=== PATIENT | female | born 1980 | race Caucasian/White ===

== ENCOUNTER 2020-02-17 20:29 | Emergency (ER) | payer BC, SELFPAY ==
[2020-02-17] VITALS (7 sets, daily range): BP systolic 122–156; BP diastolic 81–99; PULSE 81–88; RESP 16; TEMP 37; O2SAT 98–100
--- NOTE | ~2020-02-17 | XR_ITS ---
EXAMINATION: XR chest 2V DATE: 02/17/2020 21:15 INDICATION: Hypertension TECHNIQUE: PA and lateral views of the chest are obtained. COMPARISON: None available FINDINGS: The lungs are free of acute opacities. There is no pleural effusion or pneumothorax. The ca rdiomediastinal silhouette is normal. There is mild thoracic spondylosis. IMPRESSION: 1. No acute cardiopulmonary abnormality. Reviewed, dictated and finalized at location A. LE BOSS
--- NOTE | 2020-02-17 20:41 | ECG_ITS ---
Measurements Intervals Stout Rate: 86 P: 19 MD: 138 QRS: 48 QRSD: 106 T: 30 QT: 378 QTc: 454 Interpretive Statements SINUS RHYTHM BORDERLINE T WAVE ABNORMALITY- ANTERIOR LEADS BORDERLINE ECG Electronically Signed On 02-19-2020 8:23:06 SOIL TESTER by Uli Joshi D.O.
[2020-02-17 21:01] LABS: Appearance Urine Clear (Clear); Bilirubin Urine Negative (Negative); Color Urine Yellow (Yellow); Glucose Urine UA Negative (Negative); Ketones Urine Negative (Negative); Leukocyte Esterase Ur Negative LEU/UL (Negative); Nitrate Urine Negative (Negative); Protein Urine Negative (Negative); Urobilinogen Urine 0.2 mg/dL (0.2-1.0); pH Urine 6.5 (5.0-8.0)
[2020-02-17 21:02] LABS: Basophils Absolute Auto 0.03 K/mm3 (0.00-0.10); Basophils Percent Auto 0.4 % (0.0-1.0); Eosinophils Absolute Auto 0.13 K/mm3 (0.02-0.50); Eosinophils Percent Auto 1.7 % (1.0-6.0); Hematocrit 43.5 % (35.0-49.0); Hemoglobin 14.1 g/dL (12.0-15.0); Immature Granulocyte Absolute 0.01 K/mm3 (0.00-0.00); Immature Granulocyte Percent A 0.1 % (0.0-0.0); Lymphocytes Absolute Auto 2.99 K/mm3 (1.10-4.50); Lymphocytes Percent Auto 39.9 % (18.0-42.0); Mean Corpuscular HGB Conc 32.4 g/dL (32.0-36.0); Mean Corpuscular Hemoglobin 30.9 pg (27.0-31.0); Mean Corpuscular Volume 95.4 fL (78.0-102.0); Mean Platelet Volume 9.5 fl (9.2-11.8); Monocytes Absolute Auto 0.58 K/mm3 (0.10-0.90); Monocytes Percent Auto 7.7 % (2.0-11.0); Neutrophils Absolute Auto 3.8 K/mm3 (1.7-7.2); Neutrophils Percent Auto 50.2 % (50.0-70.0); Platelet Count Result 266 K/mm3 (150-420); Red Blood Count 4.56 M/mm3 (4.20-5.40); Red Cell Distribution Width 12.5 % (11.6-14.4); White Blood Count 7.5 K/mm3 (4.8-10.8)
[2020-02-17 21:05] LABS: Add Urine Microscopic? YES; Blood Urine Trace-Intact (Negative); RBC Urine 0-2 /hpf (0-2); WBC Urine 0-3 /hpf (0-3)
[2020-02-17] MEDS: METOPROLOL SUCCINATE EXT REL 25 MG TABCR PO (21:05)
[2020-02-17 21:06] LABS: Bacteria Urine 1+ /hpf; Squamous Epithelial Cell Urine Few /hpf (Few)
[2020-02-17 21:11] LABS: Amphetamine Screen Urine Negative (Negative); Barbiturate Screen Urine Negative (Negative); Benzodiazepines Screen Urine Negative (Negative); Cannabinoid Screen Urine Negative (Negative); Cocaine Screen Urine Negative (Negative); Methadone Screen Urine Negative (Negative); Opiate Screen Urine Negative (Negative); Phencyclidine Screen Urine Negative (Negative)
[2020-02-17 21:12] LABS: INR 0.9; Partial Thromboplastin Time 22.5 SEC (23.90-30.70); Prothrombin Time 9.6 Seconds (9.50-12.10)
[2020-02-17 21:13] LABS: D Dimer 0.24 mg/L (0.19-0.50)
[2020-02-17 21:17] LABS: Alanine Aminotransferase 37 U/L (14-59); Alkaline Phosphatase 51 U/L (46-116); Anion Gap 9 mmol/L (8-16); Aspartate Amino Transferase 19 U/L (15-37); Bilirubin,Total 0.2 mg/dL (0.00-1.00); Blood Urea Nitrogen 16 mg/dL (7-18); Carbon Dioxide 28 mmol/L (21-32); Chloride 101 mmol/L (98-108); Estimated CRCL calculation 83 ml/min; Estimated Glomerular Filt Rate > 60; Glucose 103 mg/dL (70-99); Osmolality Calculated 287 mOsm/kg (285-295); Potassium 3.6 mmol/L (3.5-5.1); Sodium 138 mmol/L (136-145); Total Protein 7.4 g/dL (6.4-8.2)
[2020-02-17 21:19] LABS: Troponin I 4.1 ng/L (0.00-60.4)
--- NOTE | 2020-02-17 21:33 | ED.GENADULT ---
HPI - General Adult General Chief complaint: Unspecified Stated complaint: 39YO female w/ no prior h.o HTN here concerned over elevated Bp that her home monitor has been recording. Went to PCP on 02/06/20 where she was asked to monitor ambulatory Bp, her Bp have been elevated since she has been taking them. Related Data Home Medications Medication Instructions Recorded Confirmed multivitamin 1 tablet PO DAILY 02/23/19 02/17/20 norethindrone (contraceptive) 0.35 mg PO DAILY 02/17/20 02/17/20 Allergies Allergy/AdvReac Type Severity Reaction Status Date / Time No Known Allergies Allergy Verified 03/24/19 12:26 Review of Systems Review of Systems: All systems reviewed & are unremarkable except as noted in HPI and below Constitutional: Constitutional: Reports no additional constitutional complaints Eyes: Eyes: Reports no additional eye complaints ENT: Reports system reviewed and no additional complaints, except as documented Cardiovascular: Cardiovascular: Reports no additional cardiovascular complaints Respiratory: Respiratory: Reports no additional respiratory complaints Gastrointestinal: Gastrointestinal: Reports no additional gastrointestinal complaints Genitourinary: Genitourinary: Reports no additional female genitourinary complaints Musculoskeletal: Musculoskeletal: Reports no additional musculoskeletal complaints Integumentary/Breasts: Skin/Breast: Reports system reviewed and no additional complaints, except as docu Neurologic: Reports headache(s) Psychiatric: Psychiatric: Reports no additional psychiatric complaints PMFSH Surgical History Surgical History H/O section Family History Family History Grandparent Kidney disease Lung cancer Social History Social History Social History: , has 2 children Smoking packs per day: 0.5 Smoking cigarettes per day: 10.0 Years smoked: 4 Smoking pack-years: 2.00 Smoking status: Former smoker Alcohol intake: current Substance use: never Substance use type: does not use Gender identity (if verbalized by the patient): Female Spiritual care concerns: No Agree to blood products: Yes Exam Const: General: cooperative, healthy appearing, no acute distress, well developed, alert, awake and Physically active Nutritional Appearance: average body habitus and well nourished Orientation/consciousness: oriented to person, oriented to place, oriented to time and patient oriented x3 Limitations: no limitations HENMT: Head: normal to inspection Ears: hearing grossly normal bilaterally Eyes: General: appearance normal, both eyes and all related structures Neck: Neck: normal visual inspection Chest: Chest palpation & inspection: normal inspection of the chest Resp: Effort & Inspection: normal respiratory effort Cardio: Jugular venous distension: no JVD Palpation: normal PMI Rate: regular rate Rhythm: regular rhythm Heart sounds: S1 normal heart sound present and S2 normal heart sound present GI: Inspection: normal to inspection Auscultation: normal bowel sounds Back/Spine/Pelvis: Back: no CVA tenderness Thoracic/Lumbar Spine: thoracic and lumbar spine normal to inspection Skin: General skin exam: normal color and no rashes or lesions noted Lesions: no lesions Rashes: no rashes Trauma: no lacerations or abrasions Hair: normal Nails: normal Neuro: General: oriented to person, oriented to place, oriented to time, patient oriented x3, gait normal, tone normal, moves all extremities, Normal light touch and pain sensation, no meningeal signs, no focal motor deficits and CN's II-XI intact bilaterally Cranial nerves: Yes CN's II-XII intact bilaterally and Yes Nystagmus not present Cognition (Neuro): normal cognition Speech: normal speech Gait exam (
== END 2020-02-17 21:59 | disposition home or self-care (01) ==
PROVIDERS: Emergency Provider Family Medicine; PCP Nurse Practitioner Family
DX: I10 Essential (primary) hypertension (principal); Z87.891 Personal history of nicotine dependence
CPT/HCPCS: 36415; 71046; 80053; 80307; 81001; 84484; 85025; 85380; 85610; 85730; 93005; 99283; 99284; A9270

== ENCOUNTER 2020-02-23 10:56 | Outpatient (CLI) | payer BC, SELFPAY ==
--- NOTE | ~2020-02-23 | MM_ITS ---
EXAMINATION: MM screening [facility] BI w juan HISTORY: Screening mammogram TECHNIQUE: Craniocaudal and mediolateral oblique 3-D tomosynthesis images were obtained and synthetic 2-D images were generated. CAD analysis was submitted and interpreted. COMPARISON: None, baseline BREAST PARENCHYMAL COMPOSITION: The breasts are almost entirely fatty. FINDINGS: There is no evidence of suspicious mass, calcification, or architectural distortion to sugg est malignancy in either breast. IMPRESSION: 1. No mammographic evidence of malignancy. 2. Recommend routine screening mammography in one year. BI-RADS Category 1: Negative Reviewed, dictated and finalized at location A. ABLE TRACK LINE MARKER
== END 2020-02-23 10:57 | disposition home or self-care (01) ==
LOC: CHSIMG 10:57
PROVIDERS: PCP Nurse Practitioner Family; Visit Provider Nurse Practitioner Family
DX: Z12.31 Encounter for screening mammogram for malignant neoplasm of breast (principal)
CPT/HCPCS: 77063; 77067

== ENCOUNTER 2021-02-26 08:31 | Outpatient (CLI) | payer BC, SELFPAY ==
--- NOTE | ~2021-02-26 | MM_ITS ---
EXAMINATION: MM screening [facility] BI w juan HISTORY: Screening TECHNIQUE: Craniocaudal and mediolateral oblique 3-D tomosynthesis images were obtained and synthetic 2-D images were generated. CAD analysis was submitted and interpreted. COMPARISON: 02/23/2020 BREAST PARENCHYMAL COMPOSITION: There are scattered areas of fibroglandular density. FINDINGS: There is no evidence of suspicious mass, calcification, or architectural distortion to sugg est malignancy in either breast. There has been no suspicious interval change. IMPRESSION: 1. No mammographic evidence of malignancy. 2. Recommend routine screening mammography in one year. BI-RADS Category 1: Negative Reviewed, dictated and finalized at location A. ATING SYSTEM PROGRAMMER
== END 2021-02-26 08:32 | disposition home or self-care (01) ==
LOC: CHSIMG 08:32
PROVIDERS: PCP Nurse Practitioner Family; Visit Provider Nurse Practitioner Women's Health
DX: Z12.31 Encounter for screening mammogram for malignant neoplasm of breast (principal)
CPT/HCPCS: 77063; 77067

== ENCOUNTER 2022-02-27 11:44 | Outpatient (CLI) | payer BC, SELFPAY ==
--- NOTE | ~2022-02-27 | MM_ITS ---
EXAMINATION: MM screening [facility] BI w juan HISTORY: Screening TECHNIQUE: Craniocaudal and mediolateral oblique 3-D tomosynthesis images were obtained and synthetic 2-D images were generated. CAD analysis was submitted and interpreted. COMPARISON: Comparison to multiple prior studies sequentially, with oldest reviewed study dated 08/2020. BREAST PARENCHYMAL COMPOSITION: There are scattered areas of fibroglandular density. FINDINGS: There is no evidence of suspicious mass, calcification, or architectural distortion to sugg est malignancy in either breast. There has been no suspicious interval change. IMPRESSION: 1. No mammographic evidence of malignancy. 2. Recommend routine screening mammography in one year. BI-RADS Category 1: Negative Reviewed, dictated and finalized at location A. D TECHNICIAN
== END 2022-02-27 11:45 | disposition home or self-care (01) ==
LOC: CHSIMG 11:46
PROVIDERS: PCP Nurse Practitioner Family; Visit Provider Nurse Practitioner Women's Health
DX: Z12.31 Encounter for screening mammogram for malignant neoplasm of breast (principal)
CPT/HCPCS: 77063; 77067

== ENCOUNTER 2022-03-24 13:20 | Outpatient (CLI) | payer BC, SELFPAY ==
[2022-03-24 14:15] LABS: Alanine Aminotransferase 16 U/L (14-59); Albumin Level 4.1 g/dL (3.4-5.0); Alkaline Phosphatase 60 U/L (46-116); Anion Gap 9 mmol/L (8-16); Aspartate Amino Transferase 12 U/L (15-37); Bilirubin,Total 0.4 mg/dL (0.00-1.00); Blood Urea Nitrogen 16 mg/dL (7-18); Calcium 9.1 mg/dL (8.5-10.1); Carbon Dioxide 29 mmol/L (21-32); Chloride 103 mmol/L (98-108); Cholesterol 203 mg/dL (0-200); Estimated Glomerular Filt Rate > 60; Free T4 Free Thyroxine 0.85 ng/dL (0.76-1.46); Glucose 93 mg/dL (70-99); HDL Direct 66 mg/dL (40-60); LDL Cholesterol Calculated 124 mg/dL (<130); Osmolality Calculated 293 mOsm/kg (285-295); Potassium 3.2 mmol/L (3.5-5.1); Sodium 141 mmol/L (136-145); Thyroid Stimulating Hormone 1.15 uIU/mL (0.36-3.74); Total Protein 6.9 g/dL (6.4-8.2); Triglycerides 67 mg/dL (0-150)
[2022-03-27 17:23] LABS: Vitamin D 25 Hydroxy 34 ng/mL (30-100)
== END 2022-03-24 13:21 | disposition home or self-care (01) ==
LOC: CHSLAB 13:22
PROVIDERS: PCP Nurse Practitioner Family; Visit Provider Nurse Practitioner Family
DX: R53.83 Other fatigue (principal); Z79.899 Other long term (current) drug therapy; Z13.6 Encounter for screening for cardiovascular disorders; I10 Essential (primary) hypertension
CPT/HCPCS: 36415; 80053; 80061; 82306; 84439; 84443

== ENCOUNTER 2023-03-13 12:44 | Outpatient (CLI) | payer BC, SELFPAY ==
--- NOTE | ~2023-03-13 | MM_ITS ---
EXAMINATION: MM screening [facility] BI w juan HISTORY: Screening mammogram TECHNIQUE: Craniocaudal and mediolateral oblique 3-D tomosynthesis images were obtained and synthetic 2-D images were generated. CAD analysis was submitted and interpreted. COMPARISON: 02/27/2022, 02/26/2021, 02/23/2020 BREAST PARENCHYMAL COMPOSITION: There are scattered areas of fibroglandular density. FINDINGS: No suspicious mass, calcification, or architectural distortion are identified in either jaya ast to suggest malignancy. There has been no suspicious interval change. IMPRESSION: 1. No mammographic evidence of malignancy. 2. Recommend routine screening mammography in one year. BI-RADS Category 1: Negative Reviewed, dictated and finalized at location A. ER TYPE BAR AND SEGMENT
== END 2023-03-13 12:45 | disposition home or self-care (01) ==
LOC: CHSIMG 12:45
PROVIDERS: PCP Nurse Practitioner Family; Visit Provider Nurse Practitioner Women's Health
DX: Z12.31 Encounter for screening mammogram for malignant neoplasm of breast (principal)
CPT/HCPCS: 77063; 77067

== ENCOUNTER 2024-03-15 13:45 | Outpatient (CLI) | payer BC, SELFPAY ==
--- NOTE | ~2024-03-15 | MM_ITS ---
EXAMINATION: MM screening debbi BI w juan HISTORY: Screening TECHNIQUE: Craniocaudal and mediolateral oblique 3-D tomosynthesis images were obtained and synthetic 2-D images were generated. CAD analysis was submitted and interpreted. COMPARISON: Comparison to multiple prior studies sequentially, with oldest reviewed study dated 08/2020. BREAST PARENCHYMAL COMPOSITION: Not dense: There are scattered areas of fibroglandular density. FINDINGS: There is no evidence of suspicious mass, calcification, or architectural distortion to sugg est malignancy in either breast. There has been no suspicious interval change. IMPRESSION: 1. No mammographic evidence of malignancy. 2. Recommend routine screening mammography in one year. BI-RADS Category 1: Negative Reviewed, dictated and finalized at location A. INE GUNNER
--- OUTSIDE RECORDS SUMMARY | 2024-03-15 14:25 | XMS_ITS ---
Author Organization [facility] Address [address] [place] [address] Phone Care Team Providers Care Project Management Advisor Name Role Phone SOFY MALONE, SELAM C Unavailable [phone] LESLIE SMITH MD Primary Care Provider [phone] Problems Includes: Active, inactive, and resolved Problems All Visits Onset Date Resolved Date Provider Condition S tatus History of Essential Hypertension 12/13/2013 Unknown JOSE BLAIR MD Resolved Last Documented On 08/10/2014 9:21AM ; [facility] Note: was Closed. Delivery 07/26/2013 02/06/2020 ELIZABETH Gerson JEREMY CARMONA WHNP-BC Resolved Last Documented On 02/06/2020 8:40AM ; [facility] Note: LTCS Drug Use 07/06/2012 Unknown JOSE BLAIR MD Resolved Last Documented On 02/28/2013 3:37PM ; [facility] Note: was Closed. Tobacco Use 07/06/2012 Unknown JOSE BLAIR MD Resolve d Last Documented On 02/28/2013 3:37PM ; [facility] Note: was Closed. Plan of Treatment Findings Encounter Date Ordered Clinical summary pro vided to patient WELL WOMAN - ESTABLISHED PT with ELIZABETHBRIAN CARDONA WHNP-BC 03/16/2023 Last Documented On 9:34AM ; [facility] Ordered follow-up visit 1 ye ar or as needed WELL WOMAN - ESTABLISHED PT with ELIZABETH CARDONA WHNP-BC 03/16/2023 Last Documented On 4 9:34AM ; [facility] Ordered Clinical summary pro vided to patient WELL WOMAN - ESTABLISHED PT with ELIZABETH CARDONA WHNP-BC 03/13/2022 Last Documented On 3 9:41AM ; [facility] Ordered follow-up visit 1 ye ar or as needed WELL WOMAN - ESTABLISHED PT with ELIZABETHBRIAN CARDONA WHNP-BC 03/13/2022 Last Documented On 3 9:41AM ; [facility] Ordered Clinical summary pro vided to patient WELL WOMAN - ESTABLISHED PT with ELIZABETHBRIAN CARDONA WHNP-BC 03/07/2021 Last Documented On 2 9:05AM ; [facility] Ordered follow-up visit 1 ye ar or as needed WELL WOMAN - ESTABLISHED PT with ELIZABETHBRIAN CARDONA WHNP-BC 03/07/2021 Last Documented On 2 9:05AM ; [facility] Ordered Clinical summary pro vided to patient BIOINFORMATICS DEVELOPER EXAM with ELIZABETH CARDONA WHNP-BC 02/06/2020 Last Documented On 0 8:53AM ; [facility] Ordered follow-up visit 1 ye ar or as needed BIOINFORMATICS DEVELOPER EXAM with ELIZABETHBRIAN CARDONA WHNP-BC 02/06/2020 Last Documented On 0 8:53AM ; [facility] Ordered Clinical summary pro vided to patient PROBLEM VISIT with ELIZABETH CARDONA WHNP-BC 02/24/2019 Last Documented On 0 9:02AM ; [facility] Ordered Clinical summary pro vided to patient BIOINFORMATICS DEVELOPER EXAM with ELIZABETHBRIAN CARDONA WHNP-BC 02/02/2019 Last Documented On 9 9:02AM ; [facility] Ordered Clinical summary pro vided to patient BIOINFORMATICS DEVELOPER EXAM with ELIZABETHBRIAN CARDONA WHNP-BC 12/25/2017 Last Documented On 8 9:17AM ; [facility] Ordered Clinical summary pro vided to patient BIOINFORMATICS DEVELOPER EXAM with ELIZABETHBRIAN CARDONA WHNP-BC 12/17/2016 Last Documented On 7 9:27AM ; [facility] Ordered Clinical summary pro vided to patient BIOINFORMATICS DEVELOPER EXAM with ELIZABETHBRIAN CARDONA WHNP-BC 12/17/2015 Last Documented On 6 11:20AM ; [facility] Ordered Clinical summary pro vided to patient BIOINFORMATICS DEVELOPER EXAM with ELIZABETH CARDONA NP-BC 12/15/2014 Last Documented On 5 9:55AM ; [facility] Ordered Clinical summary pro vided to patient RETURN OB EXAM with ELIZABETH CARDONA WHNP-BC 06/01/2014 Last Documented On 5 1:29PM ; [facility] Ordered Clinical summary pro vided to patient RETURN OB EXAM with ELIZABETH CARDONA WHNP-BC 04/20/2014 Last Documented On 5 10:20AM ; [facility] Ordered Clinical summary pro vided to patient RETURN OB EXAM with ELIZABETH CARDONA NP-BC 03/09/2014 Last Documented On 5 9:42AM ; [facility] Ordered Clinical summary pro vided to patient RETURN OB EXAM with ELIZABETH CARDONA NP-BC 01/09/2014 Last Documented On 4 1:54PM ; [facility] Ordered Clinical summary pro vided to patient RETURN OB EXAM with ELIZABETH CARDONA NP-BC 12/23/2012 Last Documented On 3 9:51AM ; [facility] Ordered Clinical summary pro vided to patient RETURN OB EXAM with ELIZABETH CARDONA NP-BC 11/26/2012 Last Documented On 3 1:37PM ; [facility] Ordered Clinical summary pro vided to patient RETURN OB EXAM with ELIZABETH CARDONA NP-BC 10/28/2012 Last Documented On 3 8:59AM ; [facility] Ordered Clinical summary pro vided to patient NEW OB EXAM with ELIZABETH CARDONA NP-BC 07/06/2012 Last Documented On 3 11:32AM ; [facility] D/W pt. need to wait 3 full cycles before attempting another .Jessie spent 20 minutes discussing blighted ovum vs. miscarriage and need for f/u u/sound if quant. hcg is not decreasing. She states full understanding of above and is agreeable to this plan. Declines counseling today - doing well emotionally RECHECK with ELIZABETH CARDONA WHNP-BC 12/11/2011 Last Documented On 2 8:32AM ; [facility] Ordered Clinical summary pro vided to patient MISSED MENSES with ELIZABETH CARDONA [facility]- 11/19/2011 Last Documented On 2 11:45AM ; [facility] Marya is still trying to co nceive. See labs and u/s from last year. I strongly encouraged her , Smooth ( [birth year]) to have semen analysis and she states he is agreeable, so order and instructions given. She is cycling q month x 3-4 days. She would like to see Dr. Blair for fertility consult. PCOS pamphlet given and briefly discussed. Taking pnv otc BIOINFORMATICS DEVELOPER EXAM with ELIZABETH CARDONA [facility] 08/14/2011 Last Documented On 2 10:56AM ; [facility] Ordered follow-up visit 1 ye ar or as needed BIOINFORMATICS DEVELOPER EXAM with ELIZABETH CARDONA [facility]- 08/09/2010 Last Documented On 1 11:22AM ; [facility] Ordered follow-up visit 1 ye ar or as needed BIOINFORMATICS DEVELOPER EXAM with ELIZABETH CARDONA [facility] 08/01/2009 Last Documented On 0 2:53PM ; [facility] Instructions to patient Instructions for patient : B reast Self Exam discussed Last Documented On 4 9:27AM ; [facility] Lose weight Last Documented On 4 9:28AM ; [facility] Instructions for patient : B reast Self Exam discussed Last Documented On 3 9:28AM ; [facility] Lose weight Last Documented On 3 9:30AM ; [facility] Instructions for patient : B reast Self Exam discussed Last Documented On 2 8:56AM ; [facility] Lose weight Last Documented On 2 8:56AM ; [facility] Instructions for patient : B reast Self Exam discussed Last Documented On 0 8:36AM ; [facility] Lose weight Last Documented On 0 8:36AM ; [facility] Instructions for patient : K eep the area around the vulva dry. Allow the area to have exposure to air. Avoid irritants such as fabric softeners and perfumed soaps.~ Last Documented On 0 8:47AM ; [facility] Advised d/c scented bath pro ducts Last Documented On 0 8:47AM ; [facility] Instructions for patient : B reast Self Exam discussed Last Documented On 9 8:44AM ; [facility] Lose weight Last Documented On 9 8:45AM ; [facility] Instructions for patient : B reast Self Exam discussed Last Documented On 8 8:59AM ; [facility] Lose weight Last Documented On 8 8:59AM ; [facility] Instructions for patient : B reast Self Exam discussed Last Documented On 7 9:12AM ; [facility] Lose weight Last Documented On 7 9:13AM ; [facility] Instructions for patient : B reast Self Exam discussed Last Documented On 6 11:05AM ; [facility] Lose weight Last Documented On 6 11:06AM ; [facility] Safe sex counseling Last Documented On 6 11:06AM ; [facility] Instructions for patient : B reast Self Exam discussed Last Documented On 5 9:29AM ; [facility] Lose weight Last Documented On 5 9:30AM ; [facility] Instructions for patient : K eep the area around the vulva dry. Allow the area to have exposure to air. Avoid irritants such as fabric softeners and perfumed soaps.~ Last Documented On 4 2:25PM ; [facility] Instructions for patient : B reast Self Exam discussed Last Documented On 4 10:41AM ; [facility] Instructions for patient : t he patient was instructed in the use and possible side effects of the medication prescribed. She is to maintain good hydration via p.o. fluids. We also discussed possible triggers for UTI and preventive measures Last Documented On 3 3:51PM ; [facility] Patient to call if fever or back pain Last Documented On 3 3:51PM ; [facility] Instructed to decrease carbo [place] and caffeine Last Documented On 3 3:51PM ; [facility] Increase water po Last Documented On 3 3:51PM ; [facility] Instructions For Patient: go od handwashing and perineal care Last Documented On 3 3:51PM ; [facility] Return to the clinic if cond ition worsens or new symptoms arise Last Documented On 3 8:53AM ; [facility] ER/ Pain Precautions Last Documented On 3 8:53AM ; [facility] Instructions for patient : B reast Self Exam discussed Last Documented On 2 10:11AM ; [facility] Instructions for patient : B reast Self Exam discussed Last Documented On 1 10:59AM ; [facility] Instructions for patient : B reast Self Exam discussed Last Documented On 0 2:25PM ; [facility] Education and Decision Aids were provided during visit for: Patient Education: Daily ange cium and vitamin D Last Documented On 4 9:27AM ; [facility] Patient Education: weight be aring exercise Last Documented On 4 9:27AM ; [facility] Patient Education: Daily ange cium and vitamin D Last Documented On 3 9:28AM ; [facility] Patient Education: weight be aring exercise Last Documented On 3 9:28AM ; [facility] Patient Education: Daily ange cium and vitamin D Last Documented On 2 8:56AM ; [facility] Patient Education: weight be aring exercise Last Documented On 2 8:56AM ; [facility] Patient Education: Daily ange cium and vitamin D Last Documented On 0 8:36AM ; [facility] Patient Education: weight be aring exercise Last Documented On 0 8:36AM ; [facility] Candidiasis Vulvovaginitis I nformation Sheet Given Last Documented On 0 9:00AM ; [facility] Patient Education: Daily ange cium and vitamin D Last Documented On 9 8:44AM ; [facility] Patient Education: weight be aring exercise Last Documented On 9 8:44AM ; [facility] Patient Education: Daily ange cium and vitamin D Last Documented On 8 8:59AM ; [facility] Patient Education: weight be aring exercise Last Documented On 8 8:59AM ; [facility] Patient Education: Daily ange cium and vitamin D Last Documented On 7 9:12AM ; [facility] Patient Education: weight be aring exercise Last Documented On 7 9:12AM ; [facility] Patient Education: Daily ange cium and vitamin D Last Documented On 6 11:05AM ; [facility] Patient Education: weight be aring exercise Last Documented On 6 11:05AM ; [facility] Patient Education: Daily ange cium and vitamin D Last Documented On 5 9:29AM ; [facility] Patient Education: weight be aring exercise Last Documented On 5 9:29AM ; [facility] control consent review ed and signed Last Documented On 5 9:30AM ; [facility] control consent review ed and signed Last Documented On 5 2:02PM ; [facility] Patient education :APPLY RX EXTERNALLY, AND PARTIALLY INSERT APPLICATOR INTO VAGINA W/RX AT HS. PT TO CALL IF NO RELIEF OF SX OR ANY CHANGE IN STATUS. ALL QUESTIONS ANSWERED Last Documented On 4 2:25PM ; [facility] Candidiasis Vulvovaginitis I nformation Sheet Given Last Documented On 4 2:25PM ; [facility] STD screening offered and de clined Last Documented On 4 10:41AM ; [facility] Smoking cessation advised Qu it smoking!! Last Documented On 2 11:22AM ; [facility] New OB form given to patient SAB precautions reviewed and pnv samples given. Advised H1N1 and seasonal flu vaccine Last Documented On 2 10:53AM ; [facility] Patient Education: Daily ange cium and vitamin D Last Documented On 2 10:11AM ; [facility] Patient Education: weight be aring exercise Last Documented On 2 10:11AM ; [facility] New OB form given to patient Last Documented On 2 10:44AM ; [facility] Patient Education: Daily ange cium and vitamin D Last Documented On 1 11:00AM ; [facility] Patient Education: weight be aring exercise Last Documented On 1 11:00AM ; [facility] Smoking cessation advised Last Documented On 1 11:00AM ; [facility] New OB form given to patient Last Documented On 1 11:12AM ; [facility] Smoking cessation advised Last Documented On 0 2:53PM ; [facility] Assessments Includes: Assessments for all patient encounters Findings Encounter Date NORMAL FEMALE EXAM WELL WOMAN - ESTABLISHED PT w stephan CARDONA NP-BC 03/16/2023 Last Documented On 4 9:34AM ; [facility] Screening Malig. Neoplasm Rectum WELL WO MAN - ESTABLISHED PT with ELIZABETH CARDONA NP-BC 03/16/2023 Last Documented On 4 9:34AM ; [facility] NORMAL FEMALE EXAM WELL WOMAN - ESTABLISHED PT w stephan CARDONA WHNP-BC 03/13/2022 Last Documented On 3 9:41AM ; [facility] Screening Malig. Neoplasm Rectum WELL WO MAN - ESTABLISHED PT with ELIZABETH CARDONA NP-BC 03/13/2022 Last Documented On 3 9:41AM ; [facility] NORMAL FEMALE EXAM WELL WOMAN - ESTABLISHED PT w stephan CARDONA WHNP-BC 03/07/2021 Last Documented On 2 9:05AM ; [facility] Screening Malig. Neoplasm Rectum WELL WO MAN - ESTABLISHED PT with ELIZABETH CARDONA WHNP-BC 03/07/2021 Last Documented On 2 9:05AM ; [facility] NORMAL FEMALE EXAM BIOINFORMATICS DEVELOPER EXAM with ELIZABETH Dominguez P-BC 02/06/2020 Last Documented On 0 8:53AM ; [facility] Screening Malig. Neoplasm Rectum BIOINFORMATICS DEVELOPER EXAM with Sumeet CARDONA NP-BC 02/06/2020 Last Documented On 0 8:53AM ; [facility] Lucía albicans vulvovaginitis PROBLEM VISIT wi th ELIZABETH CARDONA [facility] 02/24/2019 Last Documented On 0 9:02AM ; [facility] NORMAL FEMALE EXAM BIOINFORMATICS DEVELOPER EXAM with ELIZABETH CARDONA W HNP-BC 02/02/2019 Last Documented On 9 9:02AM ; [facility] NORMAL FEMALE EXAM BIOINFORMATICS DEVELOPER EXAM with ELIZABETH CARDONA W HNP-BC 12/25/2017 Last Documented On 8 9:17AM ; [facility] NORMAL FEMALE EXAM BIOINFORMATICS DEVELOPER EXAM with ELIZABETH CARDONA W HNP-BC 12/17/2016 Last Documented On 7 9:27AM ; [facility] NORMAL FEMALE EXAM BIOINFORMATICS DEVELOPER EXAM with ELIZABETH CARDONA W HNP-BC 12/17/2015 Last Documented On 6 11:20AM ; [facility] Contraceptive management CONSULTATION with JOSE BLAIR MD 11/12/2015 Last Documented On 6 4:18PM ; [facility] NORMAL FEMALE EXAM BIOINFORMATICS DEVELOPER EXAM with ELIZABETH Dominguez P-BC 12/15/2014 Last Documented On 5 9:55AM ; [facility] Normal routine history and p hysical - POST VISIT with ELIZABETH CARDONA [facility] 08/09/2014 Last Documented On 5 2:18PM ; [facility] Infection of abdominal incision PROBLEM VISIT wi th JOSE BLAIR MD 07/03/2014 Last Documented On 5 2:55PM ; [facility] Normal checkup (6 - 42 wk) RETURN OB EX AM with JOSE BLAIR MD 06/22/2014 Last Documented On 5 4:35PM ; [facility] Normal checkup (6 - 42 wk) RETURN OB EX AM with JOSE BLAIR MD 06/15/2014 Last Documented On 5 11:49AM ; [facility] Normal checkup (6 - 42 wk) [Pat ient Encounter] with JOSE BLAIR MD 06/05/2014 Last Documented On 5 4:16PM ; [facility] Normal checkup (6 - 42 wk) RETU RN OB EXAM with ELIZABETH WALLACE 06/01/2014 Last Documented On 5 1:29PM ; [facility] Normal checkup (6 - 42 wk) RETURN OB EX AM with JOSE BLAIR MD 05/18/2014 Last Documented On 5 1:01PM ; [facility] Normal checkup (6 - 42 wk) [Pat ient Encounter] with JOSE BLAIR MD 05/05/2014 Last Documented On 5 3:05PM ; [facility] Normal checkup (6 - 42 wk) RETURN OB EX AM with JOSE BLAIR MD 05/04/2014 Last Documented On 5 10:51AM ; [facility] Normal checkup (6 - 42 wk) RETU RN OB EXAM with ELIZABETH WALLACE 04/20/2014 Last Documented On 5 10:20AM ; [facility] Normal checkup (6 - 42 wk) [Pat ient Encounter] with JOSE BLAIR MD 04/10/2014 Last Documented On 5 3:47PM ; [facility] Normal checkup (6 - 42 wk) RETURN OB EX AM with JOSE BLAIR MD 04/06/2014 Last Documented On 5 9:22AM ; [facility] Normal checkup (6 - 42 wk) * PHONE CALL with JOSE BLAIR MD 03/24/2014 Last Documented On 5 2:45PM ; [facility] Normal checkup (6 - 42 wk) RETU RN OB EXAM with ELIZABETH WALLACE 03/09/2014 Last Documented On 5 9:42AM ; [facility] Normal checkup (6 - 42 wk) RETURN OB EX AM with JOSE BLAIR MD 02/06/2014 Last Documented On 4 2:05PM ; [facility] Normal checkup (6 - 42 wk) RETU RN OB EXAM with ELIZABETH WALLACE 01/09/2014 Last Documented On 4 1:54PM ; [facility] Normal checkup (6 - 42 wk) * PH ONE CALL [facility] 12/19/2013 Last Documented On 4 2:27PM ; [facility] Normal checkup (6 - 42 wk) NEW OB EXAM with JOSE BLAIR MD 12/13/2013 Last Documented On 4 3:36PM ; [facility] Lucía albicans vulvovaginitis PROBLEM VISIT with ANANDA STRICKLAND RN [facility] 11/10/2013 Last Documented On 4 2:28PM ; [facility] Routine pelvic exam BIOINFORMATICS DEVELOPER EXAM with JOSE BLAIR MD 07/26/2013 Last Documented On 4 10:51AM ; [facility] Normal checkup (6 - 42 wk) RETURN OB EX AM with JOSE BLAIR MD 01/17/2013 Last Documented On 3 3:15PM ; [facility] Normal checkup (6 - 42 wk) [Pat ient Encounter] with JOSE BLAIR MD 01/10/2013 Last Documented On 3 10:27AM ; [facility] Normal checkup (6 - 42 wk) RETURN OB EX AM with JOSE BLAIR MD 01/10/2013 Last Documented On 3 3:58PM ; [facility] Normal checkup (6 - 42 wk) * PHONE CALL with JOSE BLAIR MD 01/07/2013 Last Documented On 3 1:02PM ; [facility] Normal checkup (6 - 42 wk) RETURN OB EX AM with JOSE BLAIR MD 01/06/2013 Last Documented On 3 11:56AM ; [facility] Normal checkup (6 - 42 wk) * PH ONE CALL [facility] 12/31/2012 Last Documented On 3 3:52PM ; [facility] Normal checkup (6 - 42 wk) [Pat ient Encounter] with [facility] 12/27/2012 Last Documented On 3 7:56AM ; [facility] Normal checkup (6 - 42 wk) BLOO D PRESSURE CHECK-UP with [facility] 12/24/2012 Last Documented On 3 10:42AM ; [facility] Normal checkup (6 - 42 wk) RETU RN OB EXAM with ELIZABETH [facility]ARDONA [facility] 12/23/2012 Last Documented On 3 9:51AM ; [facility] Normal checkup (6 - 42 wk) [Pat ient Encounter] with ELIZABETH CARDONA [facility] 12/15/2012 Last Documented On 3 4:07PM ; [facility] Normal checkup (6 - 42 wk) RETURN OB EX AM with JOSE BLAIR MD 2012 Last Documented On 3 10:09AM ; [facility] Normal checkup (6 - 42 wk) * PH ONE CALL with ELIZABETH CARDONA [facility] 12/06/2012 Last Documented On 3 10:03AM ; [facility] Normal checkup (6 - 42 wk) RETU RN OB EXAM with ELIZABETH Nieto CARDONA [facility]- 11/26/2012 Last Documented On 3 1:37PM ; [facility] Normal checkup (6 - 42 wk) RETURN OB EX AM with JOSE BLAIR MD 11/11/2012 Last Documented On 3 3:27PM ; [facility] Normal checkup (6 - 42 wk) RETU RN OB EXAM with ELIZABETH CARDONA [facility]- 10/28/2012 Last Documented On 3 8:59AM ; [facility] Normal checkup (6 - 42 wk) * PHONE CALL with JOSE BLAIR MD 10/08/2012 Last Documented On 3 1:30PM ; [facility] Normal checkup (6 - 42 wk) RETURN OB EX AM with JOSE BLAIR MD 09/28/2012 Last Documented On 3 2:03PM ; [facility] Normal checkup (6 - 42 wk) RETU RN OB EXAM with ELIZABETH Nieto [facility]- 08/31/2012 Last Documented On 3 10:08AM ; [facility] Normal checkup (6 - 42 wk) RETURN OB EX AM with JOSE BLAIR MD 08/03/2012 Last Documented On 3 1:51PM ; [facility] Normal checkup (6 - 42 wk) NEW OB EXAM with ELIZABETH CARDONA [facility] 07/06/2012 Last Documented On 3 11:32AM ; [facility] Amenorrhea 10 2/7 weeks by Kate CHAUDHARY with [facility] 4-30-13 MISSED MENSES with ELIZABETH CARDONA NP-BC 11/19/2011 Last Documented On 2 11:45AM ; [facility] NORMAL FEMALE EXAM BIOINFORMATICS DEVELOPER EXAM with ELIZABETH Dominguez [facility] 08/14/2011 Last Documented On 2 10:56AM ; [facility] Normal routine history and physical BIOINFORMATICS DEVELOPER EXAM randy CARDONA [facility] 08/09/2010 Last Documented On 1 11:22AM ; [facility] Routine pelvic exam BIOINFORMATICS DEVELOPER EXAM with ELIZABETH CARDONA [facility] 08/09/2010 Last Documented On 1 11:22AM ; [facility] Normal routine history and physical BIOINFORMATICS DEVELOPER EXAM randy CARDONA [facility] 08/01/2009 Last Documented On 0 2:53PM ; [facility] Routine pelvic exam BIOINFORMATICS DEVELOPER EXAM with ELIZABETH CARDONA [facility] 08/01/2009 Last Documented On 0 2:53PM ; [facility] Instructions Includes: Instructions for all patient encounters Instructions to patient Instructions for patient : B reast Self Exam discussed Last Documented On 4 9:27AM ; [facility] Lose weight Last Documented On 4 9:28AM ; [facility] Instructions for patient : B reast Self Exam discussed Last Documented On 3 9:28AM ; [facility] Lose weight Last Documented On 3 9:30AM ; [facility] Instructions for patient : B reast Self Exam discussed Last Documented On 2 8:56AM ; [facility] Lose weight Last Documented On 2 8:56AM ; [facility] Instructions for patient : B reast Self Exam discussed Last Documented On 0 8:36AM ; [facility] Lose weight Last Documented On 0 8:36AM ; [facility] Instructions for patient : K eep the area around the vulva dry. Allow the area to have exposure to air. Avoid irritants such as fabric softeners and perfumed soaps.~ Last Documented On 0 8:47AM ; [facility] Advised d/c scented bath pro ducts Last Documented On 0 8:47AM ; [facility] Instructions for patient : B reast Self Exam discussed Last Documented On 9 8:44AM ; [facility] Lose weight Last Documented On 9 8:45AM ; [facility] Instructions for patient : B reast Self Exam discussed Last Documented On 8 8:59AM ; [facility] Lose weight Last Documented On 8 8:59AM ; [facility] Instructions for patient : B reast Self Exam discussed Last Documented On 7 9:12AM ; [facility] Lose weight Last Documented On 7 9:13AM ; [facility] Instructions for patient : B reast Self Exam discussed Last Documented On 6 11:05AM ; [facility] Lose weight Last Documented On 6 11:06AM ; [facility] Safe sex counseling Last Documented On 6 11:06AM ; [facility] Instructions for patient : B reast Self Exam discussed Last Documented On 5 9:29AM ; [facility] Lose weight Last Documented On 5 9:30AM ; [facility] Instructions for patient : K eep the area around the vulva dry. Allow the area to have exposure to air. Avoid irritants such as fabric softeners and perfumed soaps.~ Last Documented On 4 2:25PM ; [facility] Instructions for patient : B reast Self Exam discussed Last Documented On 4 10:41AM ; [facility] Instructions for patient : t he patient was instructed in the use and possible side effects of the medication prescribed. She is to maintain good hydration via p.o. fluids. We also discussed possible triggers for UTI and preventive measures Last Documented On 3 3:51PM ; [facility] Patient to call if fever or back pain Last Documented On 3 3:51PM ; [facility] Instructed to decrease [place]bo [place] and caffeine Last Documented On 3 3:51PM ; [facility] Increase water po Last Documented On 3 3:51PM ; [facility] Instructions For Patient: go od handwashing and perineal care Last Documented On 3 3:51PM ; [facility] Return to the clinic if cond ition worsens or new symptoms arise Last Documented On 3 8:53AM ; [facility] ER/ Pain Precautions Last Documented On 3 8:53AM ; [facility] Instructions for patient : B reast Self Exam discussed Last Documented On 2 10:11AM ; [facility] Instructions for patient : B reast Self Exam discussed Last Documented On 1 10:59AM ; [facility] Instructions for patient : B reast Self Exam discussed Last Documented On 0 2:25PM ; [facility] Education and Decision Aids were provided during visit for: Patient Education: Daily ange cium and vitamin D Last Documented On 4 9:27AM ; [facility] Patient Education: weight be aring exercise Last Documented On 4 9:27AM ; [facility] Patient Education: Daily ange cium and vitamin D Last Documented On 3 9:28AM ; [facility] Patient Education: weight be aring exercise Last Documented On 3 9:28AM ; [facility] Patient Education: Daily ange cium and vitamin D Last Documented On 2 8:56AM ; [facility] Patient Education: weight be aring exercise Last Documented On 2 8:56AM ; [facility] Patient Education: Daily ange cium and vitamin D Last Documented On 0 8:36AM ; [facility] Patient Education: weight be aring exercise Last Documented On 0 8:36AM ; [facility] Candidiasis Vulvovaginitis I nformation Sheet Given Last Documented On 01/09/202 0 9:00AM ; [facility] Patient Education: Daily ange cium and vitamin D Last Documented On 9 8:44AM ; [facility] Patient Education: weight be aring exercise Last Documented On 9 8:44AM ; [facility] Patient Education: Daily ange cium and vitamin D Last Documented On 8 8:59AM ; [facility] Patient Education: weight be aring exercise Last Documented On 8 8:59AM ; [facility] Patient Education: Daily ange cium and vitamin D Last Documented On 7 9:12AM ; [facility] Patient Education: weight be aring exercise Last Documented On 7 9:12AM ; [facility] Patient Education: Daily ange cium and vitamin D Last Documented On 6 11:05AM ; [facility] Patient Education: weight be aring exercise Last Documented On 6 11:05AM ; [facility] Patient Education: Daily ange cium and vitamin D Last Documented On 5 9:29AM ; [facility] Patient Education: weight be aring exercise Last Documented On 5 9:29AM ; [facility] control consent review ed and signed Last Documented On 5 9:30AM ; [facility] control consent review ed and signed Last Documented On 5 2:02PM ; [facility] Patient education :APPLY RX EXTERNALLY, AND PARTIALLY INSERT APPLICATOR INTO VAGINA W/RX AT HS. PT TO CALL IF NO RELIEF OF SX OR ANY CHANGE IN STATUS. ALL QUESTIONS ANSWERED Last Documented On 4 2:25PM ; [facility] Candidiasis Vulvovaginitis I nformation Sheet Given Last Documented On 4 2:25PM ; [facility] STD screening offered and de clined Last Documented On 4 10:41AM ; [facility] Smoking cessation advised Qu it smoking!! Last Documented On 2 11:22AM ; [facility] New OB form given to patient SAB precautions reviewed and pnv samples given. Advised H1N1 and seasonal flu vaccine Last Documented On 2 10:53AM ; [facility] Patient Education: Daily ange cium and vitamin D Last Documented On 2 10:11AM ; [facility] Patient Education: weight be aring exercise Last Documented On 2 10:11AM ; [facility] New OB form given to patient Last Documented On 2 10:44AM ; [facility] Patient Education: Daily ange cium and vitamin D Last Documented On 1 11:00AM ; [facility] Patient Education: weight be aring exercise Last Documented On 1 11:00AM ; [facility] Smoking cessation advised Last Documented On 1 11:00AM ; [facility] New OB form given to patient Last Documented On 1 11:12AM ; [facility] Smoking cessation advised Last Documented On 0 2:53PM ; [facility] Medical Equipment - Implanted Devices Includes: Current and historical Devices No Medical Equipment Recorded Medications Includes: Current and historical Medications Current Medications (continue as prescribed) Norethindrone 0.35 MG Oral Tablet 03/16/2023 Provide r: ELIZABETH WALLACE Diagnosis: One tablet daily Last Documented On 4 9:45AM By ELIZABETH WALLACE ; [facility] hydroCHLOROthiazide 25 MG Oral Tablet 03/07/2021 Pro vider: Diagnosis: Last Documented On 03/07/2021 8:57AM By Daylin Gutierrez MA ; [facility] amLODIPine Besylate 10 MG Oral Tablet 03/07/2021 Pro vider: Diagnosis: Last Documented On 03/07/2021 8:56AM By Daylin Gutierrez MA ; [facility] Ibuprofen 200 MG Tablet 11/12/2015 Provider: Diagnosis: Last Documented On 6 3:38PM By SHIRA RIVERS ; [facility] Past Medications on file Norethindrone 0.35 MG Oral Tablet 03/13/2022 - 03/16/2023 Provider: ELIZABETH SOTOMAYOR Diagnosis: One tablet daily Last Documented On 4 9:29AM By ELIZABETH WALLACE ; [facility] Norethindrone 0.35 MG Oral Tablet 03/07/2021 - 03/13/2022 Provider: ELIZABETH CHAVEZ DISTANCE EDUCATION DIRECTOR-BC Diagnosis: One tablet daily Last Documented On 3 9:32AM By ELIZABETH WALLACE ; [facility] Norethindrone 0.35 MG Oral Tablet 02/27/2021 - 03/07/2021 Provider: ELIZABETH CHAVEZ DISTANCE EDUCATION DIRECTOR-BC Diagnosis: One tablet daily - no furthe r refills until mammogram and appt. updated! Last Documented On 2 8:59AM By ELIZABETH WALLACE ; [facility] Norethindrone 0.35 MG Oral Tablet 02/06/2021 - 02/27/2021 Provider: ELIZABETH CHAVEZ DISTANCE EDUCATION DIRECTOR-BC Diagnosis: One tablet daily - no furthe r refills until mammogram and appt. updated! Last Documented On 2 6:16AM By ELIZABETH WALLACE ; [facility] Natasha 0.35 MG Oral Tablet 02/06/2020 - 02/06/2021 Prov ider: ELIZABETH CHAVEZNP-BC Diagnosis: One tablet daily Last Documented On 1 9:04AM By ELIZABETH WALLACE ; [facility] Quasense 0.15-0.03 MG Oral Tablet 01/02/2020 - 02/06/2020 Provider: ELIZABETH CHAVEZ DISTANCE EDUCATION DIRECTOR-BC Diagnosis: One tablet daily Last Documented On 0 8:53AM By ELIZABETH WALLACE ; [facility] Quasense 0.15-0.03 MG Oral Tablet 12/22/2019 - 01/02/2020 Provider: ELIZABETH CHAVEZ DISTANCE EDUCATION DIRECTOR-BC Diagnosis: One tablet daily Last Documented On 0 4:09PM By ELIZABETH WALLACE ; [facility] Diflucan 150 MG Oral Tablet 02/24/2019 - 02/06/2020 Pr ovider: ELIZABETH CHAVEZNP-BC Diagnosis: One tablet daily Last Documented On 02/06/2020 8:39AM By Daylin Gutierrez MA ; [facility] Nystatin 441127 UNIT/GM External Cream 02/24/2019 - 02/06/2020 Provider: ELIZABETH CHAVEZ DISTANCE EDUCATION DIRECTOR-BC Diagnosis: Apply twice a day to vulva prn - excoriation Last Documented On 02/06/2020 8:40AM By Daylin Gutierrez MA ; [facility] Quasense 0.15-0.03 MG Oral Tablet 02/02/2019 - 12/22/2019 Provider: ELIZABETH SOTOMAYOR Diagnosis: One tablet daily Last Documented On 0 6:32AM By ELIZABETH WALLACE ; [facility] Quasense 0.15-0.03 MG Oral Tablet 02/02/2019 - 02/02/2019 Provider: ELIZABETH CHAVEZ NP-BC Diagnosis: One tablet daily Last Documented On 9 9:03AM By ELIZABETH WALLACE ; [facility] Quasense 0.15-0.03MG Oral Tablet 12/25/2017 - 06/10/2019 Provider: ELIZABETH CHAVEZ NP-BC Diagnosis: One tablet daily Last Documented On 0 10:27AM By CAROLINE RIVERS ; [facility] Quasense 0.15-0.03MG Oral Tablet 12/25/2017 - 12/26/19 18 Provider: Diagnosis: Last Documented On 8 9:08AM By ELIZABETH WALLACE ; [facility] Quasense 0.15-0.03MG Oral Tablet 12/17/2016 - 12/25/2017 Provider: ELIZABETH WALLACE Diagnosis: Encounter for surveillance of contraceptive pills One tablet daily. Last Documented On 12/25/2017 9:06AM By CAROLINE RIVERS ; [facility] Quasense 0.15-0.03 MG Tablet 12/17/2015 - 12/17/2016 Provider: ELIZABETH WALLACE Diagnosis: Encounter for surveillance of contraceptive pills One tablet daily. Last Documented On 7 9:26AM By ELIZABETH WALLACE ; [facility] Quasense 0.15-0.03 MG Tablet 12/15/2014 - 12/17/2015 Provider: ELIZABETH WALLACE Diagnosis: Encounter for surveillance of contraceptive pills One tablet daily. Last Documented On 6 11:18AM By ELIZABETH WALLACE ; [facility] Quasense 0.15-0.03 MG Tablet 08/09/2014 - 12/15/2014 [facility] Diagnosis: One tablet daily. Start Sunday 07/23 Last Documented On 5 9:55AM [facility] ; [facility] Quasense 0.15-0.03 MG Tablet 07/11/2014 - 08/09/2014 P rovider: JOSE BLAIR MD Diagnosis: One tablet daily. Start Sunday 07/23 Last Documented On 5 2:17PM [facility] ; [facility] Ibuprofen 600 MG Tablet 07/11/2014 - 11/12/2015 Provid er: Diagnosis: prn Last Documented On 6 3:38PM By SHIRA RIVERS ; [facility] Cephalexin 500 MG Tablet 07/03/2014 - 07/13/2014 Provi jessica: JOSE BLAIR MD Diagnosis: One tablet four times a day Last Documented On 07/03/2014 2:52PM By JOSE BLAIR MD ; [facility] Cyclobenzaprine HCl 10 MG OR TABS 03/09/2014 - 04/08/2014 Provider: [facility] Diagnosis: Headache one po q 8 hours prn Last Documented On 5 9:41AM By [facility] ; [facility] Fioricet 50-300-40 MG OR CAPS 12/19/2013 - 07/11/2014 Provider: JOSE BLAIR MD Diagnosis: 1-2 every 4 hrs prn not to e xceed 6 tabs in 24 hrs was phoned to [facility] in [place]. Last Documented On 5 11:12AM By KEYSHA RIVERS ; [facility] Aspirin 81 MG OR TABS 12/13/2013 - 07/03/2014 Provider : JOSE BLAIR MD Diagnosis: Last Documented On 07/03/2014 2:38PM By KEYSHA RIVERS ; [facility] Terazol 3 0.8% [facility] 11/10/2013 - 11/13/2013 Provider: ANANDA STRICKLAND RN [facility] Diagnosis: CANDIDAL VULVOVA GINITIS USE 1 CHRIS IN VAGINA AT HS X 3 APPLY TO PERINEUM BID Last Documented On 4 2:14PM By ANANDA MONTANO- ; [facility] Pre-Lilly Formula OR TABS 11/10/2013 - 07/11/2014 Prov ider: Diagnosis: Last Documented On 5 11:12AM By KEYSHA RIVERS ; [facility] 19 OR TABS 01/28/2013 - 02/28/2013 Provider: Diagnosis: Last Documented On 02/28/2013 3:01PM By DENISE MUJICA ; [facility] Ferrous Sulfate 325 (65 Fe) MG OR TABS 01/28/2013 - Provider: Diagnosis: Last Documented On 02/11/2013 3:04PM By DENISE MUJICA ; [facility] Ibuprofen 200 MG OR CAPS 01/28/2013 - 07/26/2013 Provi jessica: Diagnosis: Last Documented On 07/26/2013 10:39AM By DENISE MUJICA ; [facility] Tyler 5-325 MG OR TABS 01/28/2013 - 02/11/2013 Provide r: Diagnosis: takes prn Last Documented On 02/11/2013 3:04PM By DNEISE MUJICA ; [facility] Procardia 10 MG OR CAPS 01/28/2013 - 02/28/2013 Provid er: Diagnosis: Last Documented On 02/28/2013 3:01PM By DENISE MUJICA ; [facility] Stool Softener 100 MG OR CAPS 01/28/2013 - 02/28/2013 Provider: Diagnosis: Last Documented On 02/28/2013 3:01PM By DENISE MUJICA ; [facility] flexeril 10mg OR TABS 12/31/2012 - 01/28/2013 Provider : ELIZABETH MONTANO- Diagnosis: SPASM OF MUSCLE one po q 8 hours prn Last Documented On 3 10:12AM By MONIQUE BURCH LPN ; [facility] Macrobid 100 MG OR CAPS 06/23/2012 - 06/30/2012 Provid er: ELIZABETH MONTANO- Diagnosis: DYSURIA Last Documented On 3 3:51PM By ELIZABETH MONTANO-EZRA ; [facility] Provera 10 MG OR TABS 12/19/2010 - 12/29/2010 Provider : ELIZABETH MONTANO-BC Diagnosis: one po q day x 10 days Last Documented On 1 2:20PM By ELIZABETH CARDONA BERNA ; [facility] Terconazole 0.4% [place] CREA 11/06/2010 - 12/06/2010 Provi jessica: ELIZABETH Nieto BRENDAN NP-BC Diagnosis: Insert vaginally q hs x 7 nocs Last Documented On 1 11:10AM By [facility] ; [facility] Triveen-Duo DHA 29-1-200 & 400 MG OR MISC 08/09/2010 - 12/07/2010 Provider: ELIZABETH CHAVEZ DISTANCE EDUCATION DIRECTOR-BC Diagnosis: Last Documented On 1 11:21AM By ELIZABETH CARDONA BERNA ; [facility] Tri-Sprintec 0.18/0.215/0.25 MG-35 MCG OR TABS 08/01/2009 - 07/27/2010 Provider: ELIZABETH CHAVEZ DISTANCE EDUCATION DIRECTOR-BC Diagnosis: Last Documented On 0 2:44PM By ELIZABETH CARDONA BERNA ; [facility] Tri-Sprintec 0.18/0.215/0.25 MG-35 MCG OR TABS 0 08/21/2008 - 03/19/2009 Provider: Diagnosis: Last Documented On 03/14/2009 9:50AM By ROD OLIVIER ; [facility] Medications Administered Includes: Administered Medications in patient's chart Medications Administered Diagnosis Date Pro vider influenza vaccine IM INJ 12/13/2013 CHAYITO BLAIR MD pt tolerated well Last Documented On 4 2:35PM By KEYSHA RIVERS ; [facility] Fluzone Preservative Free IM SUSP 013 JOSE BLAIR MD given intradermally right up per outer arm; tolerated well; no adverse reaction. mainspring former brace end Last Documented On 3 3:18PM By MONIQUE BURCH LPN ; [facility] Vital Signs Includes: Vital Signs from 03/15/2023 through 03/15/2024 Vital Name 03/16/2023 09:21A Body Mass Index 29.3 Body Surface Area 2 Blood Pressure Sitting (mmHg) 124/80 Temp-Temporal 98 Height (in) 67 Weight (lb) 187.2 Last Documented: On 03/16/2023 9:23AM ; [facility] Results Includes: Results from 03/15/2023 through 03/15/2024 FOB[facility] Ordered by ELIZABETH WALLACE on 02/17 Collected: 03/16/2023 Reported: 03/16/19 24 09:46 Last Documented On 5 6:53AM ; [facility] Reviewed by ELIZABETH SOTOMAYOR on 03/14/2024; All test results are final unless otherwise noted. OCCULT BLOOD: negative (NEG.) N (Normal) Last Documented On 4 9:46AM ; [facility] INT. QC ACCEPTABLE? yes N (Normal) Last Documented On 4 9:46AM ; [facility] LOT # & EXP. DATE [id number] N (Normal) Last Documented On 4 9:46AM ; [facility] History of Present Illness History of Present Illness not supported for this document type No History of Present Illness Recorded Social History Description Last Updated Not using alcohol 03/16/2023 Last Documented On 4 9:34AM ; [facility] Sexually active with 1 partners in the l ast year 03/16/2023 Last Documented On 4 9:34AM ; [facility] Former smoker 03/13/2022 Last Documented On 3 9:41AM ; [facility] In monogamous relationship 03/07/2021 Last Documented On 2 9:05AM ; [facility] Not using drugs 03/07/2021 Last Documented On 2 9:05AM ; [facility] Smoking Status Unknown Procedures and Surgical History Includes: Procedures from 03/15/2023 through 03/15/2024 Procedures Code Diagnosis Performing Provider Service Location Service Date FIT TEST-SCREENING FOR FECAL OCCULT BLOOD (CLIA WAIVED) 46712 Encounter for screening for malignant neoplasm of colon ELIZABETH WALLACE [facility] 03/16/2023 Last Documented On 4 12:08PM ; [facility] Surgical History Last Updated History of section 03/07/2021 Last Documented On 2 9:05AM ; [facility] Medical History Includes: Medical History in patient's chart Description Last Updated History of screening mammogram was perfo rmed 03/13/2023 Had in [place] 03/16/2023 Last Documented On 4 9:34AM ; [facility] LMP: 02/24/2023 03/16/2023 Last Documented On 4 9:34AM ; [facility] Contraception: Natasha 03/13/2022 Last Documented On 3 9:41AM ; [facility] Aborta 1 03/07/2021 Last Documented On 2 9:05AM ; [facility] 3 03/07/2021 Last Documented On 2 9:05AM ; [facility] Para 2 03/07/2021 Last Documented On 2 9:05AM ; [facility] Sexually active 03/07/2021 Last Documented On 2 9:05AM ; [facility] Family History Includes: Family History in patient's chart Description Last Updated Maternal grandmother's history of hypert ension MGM 02/02/2019 Last Documented On 9 9:02AM ; [facility] Maternal grandmother's histo ry of pure hypercholesterolemia mothers side-grandmother 02/02/2019 Last Documented On 9 9:02AM ; [facility] lung ca on fathers side 12/17/2015 Last Documented On 6 11:20AM ; [facility] Family history of heart disease fathers side 08/14/2011 Last Documented On 2 10:56AM ; [facility] Family history of hypercholesterolemia m others side 08/14/2011 Last Documented On 2 10:56AM ; [facility] Family history of thyroid disease 2009 Last Documented On 0 9:56AM ; [facility] Family medical history of Anemia 010 Last Documented On 0 9:56AM ; [facility] Review of Systems Review of Systems not supported for this document type No Review of Systems Recorded Mental Status No Mental Status Recorded Functional Status No Functional Status Recorded Physical Exam Physical Exam not supported for this document type No Physical Exam Recorded Immunizations Includes: Immunizations in patient's chart Vaccine Dose # Date Site Reaction(s) Status Source Influenza (Quadrivalent)36 mo.& older PF 0.5ml (SD) 1 11/19/2011 Right Arm Complete (Administered) [facility] Last Documented On 2 11:36AM ; [facility] Influenza (Quadrivalent)36 mo.& older PF 0.5ml (SD) 2 11/11/2012 Left Thigh Complete (Administered) [facility] Last Documented On 3 3:16PM ; [facility] Allergies Includes: Active, inactive, and resolved Allergies No Known Allergies Encounters Includes: Encounters from 03/15/2023 through 03/15/2024 Encounter Provider Location Date Check-In Time Check-Out Time Diagnosis [facility] ELIZABETH [facility]ARDONA [facility] 03/16/19 24 03/13/2022 9:30AM 9:34AM Screening Malig. Neoplasm Rectum,Normal Female Exam Insurance Includes: Active Insurance Policies Plan Name Member ID Group # Subscriber Relationship Effect kanwal Dates 1 - [facility] [id number] [employer] Clinical Notes Includes: Signed Clinical Notes starting from 03/07/2022 * Progress note Date Encounter Last Documented by 03/16/2023 [facility] Last documented on 03/16/2023; 9:34 AM, ELIZABETH CARDONA BERNA; [facility] Chief Complaint The Chief Complaint is: WWE- no issues or concerns- same partner. History of Present Illness BRANT BOWERS is a 42 year old female. - Allergy list reviewed - Medication list reviewed - Primary Care Provider: Janey Lainez Current Medication - amLODIPine Besylate 10 MG Oral Tablet 0 days, 0 refills [facility] Ibuprofen 200 MG Tablet 0 days, 0 refills - hydroCHLOROthiazide 25 MG Oral Tablet 0 days, 0 refills - Norethindrone 0.35 MG Oral Tablet One tablet daily, 28 days, 11 refills Past Medical/Surgical History Reported: LMP: 02/24/2023 and Contraception: Natasha. : 3, para 2, and aborta 1. Sexual: Sexually active. Other: Screening mammogram was performed 03/13/2023 Had in [place] Surgical: - section Social History Tobacco use: Former smoker. Alcohol: Not using alcohol. Drug Use: Not using drugs. Sexual: In monogamous relationship. Sexually active with 1 partners in the last year. Allergies - No Known Allergies Family History Heart disease fathers side Family medical history of Anemia Lung ca on fathers side Thyroid disease Pure hypercholesterolemia mothers side Maternal grandmother's: Systemic hypertension MGM Pure hypercholesterolemia mothers side-grandmother Review Of Systems Gastrointestinal: No pelvic pain. Genitourinary: No menorrhagia. No dysmenorrhea and no bleeding between periods. No vaginal discharge. Physical Findings - Vitals taken 03/16/2023 09:21 am BP-Sitting 124/80 mmHg Temp-Temporal 98 F Height 67 in Weight 187 lbs 3.2 oz Body Mass Index 29.3 kg/m2 Body Surface Area 2 m2 Standard Measurements: - Patient was not observed to be obese. General Appearance: - Well developed. - Well nourished. - In no acute distress. Neck: Thyroid: - Showed no abnormalities. Lymph Nodes: - Supraclavicular lymph nodes were not enlarged. - Axillary lymph nodes were not enlarged. Breasts: Right Breast: - Nipple was normal. - No abnormal secretion. - No mass was found. - No tenderness. Left Breast: - Nipple was normal. - No abnormal secretion. - No mass was found. - No tenderness. Lungs: - Clear to auscultation. Cardiovascular: Heart Rate And Rhythm: - Normal. Murmurs: - No murmurs were heard. Back: - No right costovertebral angle tenderness. - No left costovertebral angle tenderness. Abdomen: Palpation: - Abdominal non-tender. - No mass was palpated in the abdomen. Liver: - Not enlarged. Spleen: - Not enlarged. Urinary System: Bladder: - Normal. - Not distended. - Not tender. - Did not have a mass. - Incontinence was not demonstrated. Genitalia: External: - Genitalia showed no abnormalities. Pelvic: - No ovarian mass. Vagina: - No vaginal discharge was observed. - No cystocele was observed. - No rectocele was observed. Cervix: - Showed no lesion. - Did not demonstrate pain elicited by motion. Uterus: - Not enlarged. - Not tender. Uterine Adnexae: - Uterine adnexa was not tender. Rectovaginal: - Tissue was normal. Rectal: - Exam: normal. Psychiatric: Appearance: - Grooming was normal. Tests Laboratory-based Chemistry: Fecal Analysis: Fecal occult blood test was negative. Pathology: Cytology: Cervical Pap smear. Assessment - NORMAL FEMALE EXAM [Z01.419 - Encounter for gynecological examination (general) (routine) without abnormal findings] - Screening Malig. Neoplasm Rectum [Z12.12 - Encounter for screening for malignant neoplasm of rectum] Previous Tests - Test: LIQUID BASED PAP W HPV Report Date: 03/10/2021 HPV mRNA E6/E7 Not Detected Normal LIQUID BASED PAP W HPV PAP SMEAR ABNORMAL? NO Pathology: Cytology: Cervical Pap smear 03/07/2021. Therapy - Low fat diet. Counseling/Education - Instructions for patient: Breast Self Exam discussed - Lose weight - Patient Education: Daily calcium and vitamin D - Patient Education: weight bearing exercise Plan StartCited - Encounter for screening for malignant neoplasm of rectum In office procedures/*Clia Waived Labs: *FOBT* Fecal Occult Blood Test EndCited StartCited - Other Follow-up 1 year/prn - please get most recent mammogram report from [place]. Thank you! Norethindrone 0.35 MG tablet One tablet daily, 28 days, 11 refills EndCited - Follow-up visit 1 year or as needed - Clinical summary provided to patient Per new ASCCP guidelines, pap was deferred today. This was d/w pt. and pt. is agreeable to this plan. Practice Management Preventive medicine established patient checkup adult 40-64 years; Use of tobacco assessment performed. Health Reminders - Assess BMI satisfied 03/16/2023. - Assess Tobacco Use satisfied 03/16/2023. - Mammogram satisfied 03/16/2023.
--- OUTSIDE RECORDS SUMMARY | 2024-03-15 14:25 | XMS_ITS | Clinical Summary ---
Author Organization [facility] Address [address] [place] [address] Phone Support Name Relationship Address Phone RAJESH BOWERS [address] [address] [place] [address] [phone] RAJESH BOWERS [id number] [facility] [place] [address] [phone] Care Team Providers Care Wind Commissioning Technician Name Role Phone SOFY MALONE, SELAM C Unavailable [phone] LESLIE SMITH MD Primary Care Provider [phone] Reason for Visit and Chief Complaint [Patient Encounter] Plan of Treatment No Plan of Treatment Recorded Assessments Includes: Assessments from this encounter No Assessments Recorded Medical Equipment - Implanted Devices Includes: Current Devices No Medical Equipment Recorded Medications Includes: Medications discussed during this encounter and other current Medications Discontinued / Stopped on this date ELIZABETH Nieto CARDONA WHNP-BC on 01/02/2020 Quasense 0.15-0.03 MG Oral Tablet Provide r: ELIZABETH A BRENDAN WHNP-BC Diagnosis: Last Documented On 0 8:53AM By ELIZABETH MONTANO-BC ; [facility] Diflucan 150 MG Oral Tablet Provider: ELIZABETH CARDONA WHNP-BC Diagnosis: Last Documented On 02/06/2020 8:39AM By Daylin Gutierrez MA ; [facility] Nystatin 846804 UNIT/GM External Cream Pr ovider: ELIZABETH Nieto CARDONA WHNP-BC Diagnosis: Last Documented On 02/06/2020 8:40AM By Daylin Gutierrez MA ; [facility] Current Medications (continue as prescribed) Norethindrone 0.35 MG Oral Tablet 03/16/2023 Provide r: ELIZABETH CARDONA WHNP-BC Diagnosis: One tablet daily Last Documented On 4 9:45AM By ELIZABETH CARDONA [facility] ; [facility] hydroCHLOROthiazide 25 MG Oral Tablet 03/07/2021 Pro vider: Diagnosis: Last Documented On 03/07/2021 8:57AM By Daylin Gutierrez MA ; [facility] amLODIPine Besylate 10 MG Oral Tablet 03/07/2021 Pro vider: Diagnosis: Last Documented On 03/07/2021 8:56AM By Daylin Gutierrez MA ; [facility] Ibuprofen 200 MG Tablet 11/12/2015 Provider: Diagnosis: Last Documented On 6 3:38PM By SHIRA RIVERS ; [facility] Medications Administered Includes: Administered Medications from this encounter No Administered Medications Recorded Results Includes: Results discussed during this encounter No Results Recorded For Specified Dates History of Present Illness Includes: History of Present Illness from this encounter No History of Present Illness Recorded Social History No Social History Recorded - Smoking Status Unknown Medical History Includes: Medical History addressed during this encounter No Medical History Recorded Family History Includes: Family History addressed during this encounter No Family History Recorded Review of Systems Includes: Review of Systems from this encounter No Review of Systems Recorded Mental Status Includes: Mental Status from this encounter No Mental Status Recorded Functional Status Includes: Functional Status from this encounter No Functional Status Recorded Physical Exam Includes: Physical Exam from this encounter No Physical Exam Recorded Allergies Includes: Active Allergies No Known Allergies Encounters Encounter Provider Location Date Check-In Time Check- Out Time Diagnosis [Patient Encounter] ELIZABETH CARDONA [facility] 0 3:47PM 11:59PM Insurance Includes: Active Insurance Policies Plan Name Member ID Group # Subscriber Relationship Effect kanwal Dates 1 - [facility] [id number] RAJESH BOWERS Clinical Notes Includes: Clinical Notes from this encounter No Clinical Notes Recorded
--- OUTSIDE RECORDS SUMMARY | 2024-03-15 14:25 | XMS_ITS ---
Care Plan - [facility] Created on: March 15, 2024 ELISSABRANT BONILLA : 1980 Sex: Female Author Organization [facility] Address [address] [place] [address] Phone Care Team Providers Care Traffic Representative Name Role Phone SOFY MALONE, SELAM C Unavailable [phone] LESLIE SMITH MD Primary Care Provider [phone]
--- OUTSIDE RECORDS SUMMARY | 2024-03-15 14:25 | XMS_ITS | Clinical Summary ---
Author Organization [facility] Address [address] [place] [address] Phone Care Team Providers Care Engineering Leader Name Role Phone SOFY MALONE, SELAM C Unavailable [phone] LESLIE SMITH MD Primary Care Provider [phone] Reason for Visit and Chief Complaint The Chief Complaint is: WWE, no c/o, no new partners Problems Includes: Problems addressed during this encounter and other active Problems Current Visit Onset Date Resolved Date Provider Mckenzie barbosa Status Drug Use 07/06/2012 Unknown JOSE BLAIR MD Resolved Last Documented On 02/28/2013 3:37PM ; [facility] Note: was Closed. Plan of Treatment - Follow-up visit 1 year or as needed - Last Documented On 03/07/2021 9:05AM ; [facility] - Clinical summary provided to patient - Last Documented On 03/07/2021 9:05AM ; [facility] Instructions to patient Instructions for patient : B reast Self Exam discussed Last Documented On 2 8:56AM ; [facility] Lose weight Last Documented On 2 8:56AM ; [facility] Education and Decision Aids were provided during visit for: Patient Education: Daily ange cium and vitamin D Last Documented On 2 8:56AM ; [facility] Patient Education: weight be aring exercise Last Documented On 2 8:56AM ; [facility] Assessments Includes: Assessments from this encounter Findings - NORMAL FEMALE EXAM [Z01.419 - Encounter for gynecological examination (general) (routine) without abnormal findings] - Last Documented On 03/07/2021 9:05AM ; [facility] - Screening Malig. Neoplasm Rectum [Z12.12 - Encounter for screening for malignant neoplasm of rectum] - Last Documented On 03/07/2021 9:05AM ; [facility] Instructions Includes: Instructions from this encounter Instructions to patient Instructions for patient : B reast Self Exam discussed Last Documented On 2 8:56AM ; [facility] Lose weight Last Documented On 2 8:56AM ; [facility] Education and Decision Aids were provided during visit for: Patient Education: Daily ange cium and vitamin D Last Documented On 2 8:56AM ; [facility] Patient Education: weight be aring exercise Last Documented On 2 8:56AM ; [facility] Medical Equipment - Implanted Devices Includes: Current Devices No Medical Equipment Recorded Medications Includes: Medications discussed during this encounter and other current Medications New / Renewed during this visit ELIZABETH WALLACE on 03/07/2021 Norethindrone 0.35 MG Oral Tablet Provider: ELIZABETH Fay 28 day supply: 28 tablet, 11 refills Diagnosis: One tablet daily Pharmacy: [facility]/pharmacy # [id number], [address] - Last Documented On 3 9:32AM By ELIZABETH WALLACE ; [facility] Current Medications (continue as prescribed) Norethindrone 0.35 MG Oral Tablet 03/16/2023 Provide r: ELIZABETH WALLACE Diagnosis: One tablet daily Last Documented On 4 9:45AM By ELIZABETH WALLACE ; [facility] hydroCHLOROthiazide 25 MG Oral Tablet 03/07/2021 Pro vider: Diagnosis: Last Documented On 03/07/2021 8:57AM By Daylin Gutierrez MA ; [facility] amLODIPine Besylate 10 MG Oral Tablet 03/07/2021 Pro vider: Diagnosis: Last Documented On 03/07/2021 8:56AM By Daylin Gutierrez MA ; [facility] Ibuprofen 200 MG Tablet 11/12/2015 Provider: Diagnosis: Last Documented On 6 3:38PM By SHIRA RIVERS ; [facility] Past Medications on file Cephalexin 500 MG Tablet 07/03/2014 - 07/13/2014 Provi jessica: JOSE BLAIR MD Diagnosis: One tablet four times a day Last Documented On 07/03/2014 2:52PM By JOSE BLAIR MD ; [facility] Cyclobenzaprine HCl 10 MG OR TABS 03/09/2014 - 04/08/2014 Provider: ELIZABETH SOTOMAYOR Diagnosis: Headache one po q 8 hours prn Last Documented On 5 9:41AM By ELIZABETH WALLACE ; [facility] Terazol 3 0.8% [facility] CREA 11/10/2013 - 11/13/2013 Provider: ANANDA MONTANO BC Diagnosis: CANDIDAL VULVOVA GINITIS USE 1 CHRIS IN VAGINA AT HS X 3 APPLY TO PERINEUM BID Last Documented On 4 2:14PM By ANANDA WALLACE ; [facility] Macrobid 100 MG OR CAPS 06/23/2012 - 06/30/2012 Provid er: ELIZABETH WALLACE Diagnosis: DYSURIA Last Documented On 3 3:51PM By ELIZABETH WALLACE ; [facility] Provera 10 MG OR TABS 12/19/2010 - 12/29/2010 Provider : ELIZABETH WALLACE Diagnosis: one po q day x 10 days Last Documented On 1 2:20PM By ELIZABETH WALLACE ; [facility] Terconazole 0.4% VA CREA 11/06/2010 - 12/06/2010 Provi jessica: ELIZABETH WALLACE Diagnosis: Insert vaginally q hs x 7 nocs Last Documented On 1 11:10AM By ELIZABETH WALLACE ; [facility] Triveen-Duo DHA 29-1-200 & 400 MG OR MISC 08/09/2010 - 12/07/2010 Provider: ELIZABETH A CARDONA [facility]EYE GUNNER-BC Diagnosis: Last Documented On 1 11:21AM By [facility] Tri-Sprintec 0.18/0.215/0.25 MG-35 MCG OR TABS 08/01/2009 - 07/27/2010 Provider: ELIZABETH CHAVEZ NP-BC Diagnosis: Last Documented On 0 2:44PM By [facility] ; [facility] Tri-Sprintec 0.18/0.215/0.25 MG-35 MCG OR TABS 0 08/21/2008 - 03/19/2009 Provider: Diagnosis: Last Documented On 03/14/2009 9:50AM By ROD OLIVIER ; [facility] Medications Administered Includes: Administered Medications from this encounter No Administered Medications Recorded Vital Signs Includes: Vital Signs from this encounter Vital Name 03/07/2021 08:53A Blood Pressure Sitting L 130/70 BP Cuff Size Large Temp-Temporal 98.3 Height (in) 67 Weight (lb) 187 Body Mass Index (kg/m2) 29.3 Body Surface Area (m2) 2.0 Last Documented: On 03/07/2021 8:56AM ; [facility] Results Includes: Results discussed during this encounter No Results Recorded For Specified Dates History of Present Illness Includes: History of Present Illness from this encounter AMAURY BOWERS is a 40 year old female. - Primary Care Provider: Khadijah Bass. Social History Description Last Updated Former smoker 03/07/2021 Last Documented On 2 9:05AM ; [facility] Alcohol use occ 03/07/2021 Last Documented On 2 9:05AM ; [facility] In monogamous relationship 03/07/2021 Last Documented On 2 9:05AM ; [facility] Not using drugs 03/07/2021 Last Documented On 2 9:05AM ; [facility] Sexually active with 1 partners in the l ast year 03/07/2021 Last Documented On 2 9:05AM ; [facility] Social history unchanged 03/07/2021 Last Documented On 2 9:05AM ; [facility] Smoking Status Unknown Procedures and Surgical History Includes: Procedures from this encounter Procedures Code Diagnosis Performing Provider Service L ocation Service Date low fat diet Last Documented On 2 8:56AM ; [facility] use of tobacco assessment performed 1000F Last Documented On 2 8:58AM ; [facility] review of medications documented 1160F Last Documented On 2 8:58AM ; [facility] history of cervical Pap smear 2018 14122 Last Documented On 2 8:58AM ; [facility] fecal occult blood test was negative [id number] Last Documented On 2 8:56AM ; [facility] Cervical Pap Smear performed Q0091 Last Documented On 2 8:56AM ; [facility] Surgical History Last Updated History of section 03/07/2021 Last Documented On 2 9:05AM ; [facility] Medical History Includes: Medical History addressed during this encounter Description Last Updated Last mammogram date: 02/26/2021 2 Last Documented On 2 9:05AM ; [facility] Last pap smear date 201703/07/2021 Last Documented On 2 9:05AM ; [facility] History of screening mammogram was perfo rmed 02/26/2021 03/07/2021 Last Documented On 2 9:05AM ; [facility] LMP: 02/08/2021 03/07/2021 Last Documented On 2 9:05AM ; [facility] Aborta 1 03/07/2021 Last Documented On 2 9:05AM ; [facility] Contraception: quasense 03/07/2021 Last Documented On 2 9:05AM ; [facility] 3 03/07/2021 Last Documented On 2 9:05AM ; [facility] History of Pap smear done 12/25/2017 Last Documented On 2 9:05AM ; [facility] Last pap smear date 12/25/2017 2 Last Documented On 2 9:05AM ; [facility] No recent change in medical history 02/17 Last Documented On 2 9:05AM ; [facility] Para 2 03/07/2021 Last Documented On 2 9:05AM ; [facility] Result: normal 03/07/2021 Last Documented On 2 9:05AM ; [facility] Sexually active 03/07/2021 Last Documented On 2 9:05AM ; [facility] Family History Includes: Family History addressed during this encounter No Family History Recorded Review of Systems Includes: Review of Systems from this encounter Gastrointestinal: No pelvic pain. Genitourinary: No menorrhagia. No dysmenorrhea and no bleeding between periods. No vaginal discharge. Mental Status Includes: Mental Status from this encounter No Mental Status Recorded Functional Status Includes: Functional Status from this encounter No Functional Status Recorded Physical Exam Includes: Physical Exam from this encounter Allergies Includes: Active Allergies No Known Allergies Encounters Encounter Provider Location Date Check-In Time Check-Out Time Diagnosis WELL WOMAN - ESTABLISHED PT ELIZABETH CARDONA [facility] 03/07/19 22 8:48AM 9:08AM Screening Malig. Neoplasm Rectum,Normal Female Exam Insurance Includes: Active Insurance Policies Plan Name Member ID Group # Subscriber Relationship Effect kanwal Dates 1 - [facility] [id number] RAJESH BOWERS Clinical Notes Includes: Clinical Notes from this encounter No Clinical Notes Recorded
--- OUTSIDE RECORDS SUMMARY | 2024-03-15 14:26 | XMS_ITS | Clinical Summary ---
Author Organization [facility] Address [address] [place] [address] Phone Care Team Providers Care Mortgage Loan Closer Name Role Phone SOFY MALONE, SELAM C Unavailable [phone] LESLIE SMITH MD Primary Care Provider [phone] Reason for Visit and Chief Complaint [Patient Encounter] Plan of Treatment No Plan of Treatment Recorded Assessments Includes: Assessments from this encounter No Assessments Recorded Medical Equipment - Implanted Devices Includes: Current Devices No Medical Equipment Recorded Medications Includes: Medications discussed during this encounter and other current Medications New / Renewed during this visit ELIZABETH WALLACE on 02/27/2021 Norethindrone 0.35 MG Oral Tablet Provider: ELIZABETH Fay 28 day supply: 28 tablet, 0 refills Diagnosis: One tablet daily - no furthe r refills until mammogram and appt. updated! [id number] [facility] [address], [address] - Last Documented On 2 8:59AM By ELIZABETH WALLACE ; [facility] Current Medications (continue as prescribed) Norethindrone 0.35 MG Oral Tablet 03/16/2023 Provide r: ELIZABETH WALLACE Diagnosis: One tablet daily Last Documented On 4 9:45AM By ELIZABETH WALLACE ; [facility] hydroCHLOROthiazide 25 MG Oral Tablet 03/07/2021 Pro vider: Diagnosis: Last Documented On 03/07/2021 8:57AM By Daylin Gutierrez MA ; [facility] amLODIPine Besylate 10 MG Oral Tablet 03/07/2021 Pro vider: Diagnosis: Last Documented On 03/07/2021 8:56AM By Daylin Gutierrez MA ; [facility] Ibuprofen 200 MG Tablet 11/12/2015 Provider: Diagnosis: Last Documented On 6 3:38PM By SHIRA RIVERS ; [facility] Medications Administered Includes: Administered Medications from this [...] Location Date Check-In Time Check-Out Time Diagnosis [Patient Encounter] ELIZABETH WALLACE 02/27/2021 6:16AM 11:59PM Insurance Includes: Active Insurance Policies Plan Name Member ID Group # Subscriber Relationship Effect kanwal Dates 1 - [facility] [id number] RAJESH BOWERS Clinical Notes Includes: Clinical Notes from this encounter No Clinical Notes Recorded
--- OUTSIDE RECORDS SUMMARY | 2024-03-15 14:26 | XMS_ITS | Clinical Summary ---
Author Organization [facility] Address [address] [place] [address] Phone Care Team Providers Care Skein Yarn Drier Name Role Phone SOFY MALONE, SELAM C Unavailable [phone] LESLIE SMITH MD Primary Care Provider [phone] Reason for Visit and Chief Complaint The Chief Complaint is: WWE Problems Includes: Problems addressed during this encounter and other active Problems Current Visit Onset Date Resolved Date Provider Mckenzie barbosa Status Drug Use 07/06/2012 Unknown JOSE BLAIR MD Resolved Last Documented On 02/28/2013 3:37PM ; [facility] Note: was Closed. Plan of Treatment - Follow-up visit 1 year or as needed - Last Documented On 03/13/2022 9:41AM ; [facility] - Clinical summary provided to patient - Last Documented On 03/13/2022 9:41AM ; [facility] Per new ASCCP guidelines, pap was deferred today. This was d/w pt. and pt. is agreeable to this plan. - Last Documented On 03/13/2022 9:41AM ; [facility] Instructions to patient Instructions for patient : B reast Self Exam discussed Last Documented On 9:28AM ; [facility] Lose weight Last Documented On 9:30AM ; [facility] Education and Decision Aids were provided during visit for: Patient Education: Daily ange cium and vitamin D Last Documented On 3 9:28AM ; [facility] Patient Education: weight be aring exercise Last Documented On 3 9:28AM ; [facility] Assessments Includes: Assessments from this encounter Findings - NORMAL FEMALE EXAM [Z01.419 - Encounter for gynecological examination (general) (routine) without abnormal findings] - Last Documented On 03/13/2022 9:41AM ; [facility] - Screening Malig. Neoplasm Rectum [Z12.12 - Encounter for screening for malignant neoplasm of rectum] - Last Documented On 03/13/2022 9:41AM ; [facility] Instructions Includes: Instructions from this encounter Instructions to patient Instructions for patient : B reast Self Exam discussed Last Documented On 3 9:28AM ; [facility] Lose weight Last Documented On 3 9:30AM ; [facility] Education and Decision Aids were provided during visit for: Patient Education: Daily ange cium and vitamin D Last Documented On 3 9:28AM ; [facility] Patient Education: weight be aring exercise Last Documented On 3 9:28AM ; [facility] Medical Equipment - Implanted Devices Includes: Current Devices No Medical Equipment Recorded Medications Includes: Medications discussed during this encounter and other current Medications New / Renewed during this visit ELIZABETH WALLACE on 03/13/2022 Norethindrone 0.35 MG Oral Tablet Provider: ELIZABETH Fay 28 day supply: 28 tablet, 11 refills Diagnosis: One tablet daily Pharmacy: [facility]/pharmacy # [id number], [address] - Last Documented On 4 9:29AM By ELIZABETH WALLACE ; [facility] Current Medications (continue as prescribed) Norethindrone 0.35 MG Oral Tablet 03/16/2023 Provide r: ELIZABETH WALLACE Diagnosis: One tablet daily Last Documented On 4 9:45AM By ELIZABETH WALLACE ; [facility] hydroCHLOROthiazide 25 MG Oral Tablet 03/07/2021 Pro vider: Diagnosis: Last Documented On 03/07/2021 8:57AM By Daylin Gutierrez MA ; [facility] amLODIPine Besylate 10 MG Oral Tablet 03/07/2021 Pro vider: Diagnosis: Last Documented On 03/07/2021 8:56AM By Daylin Gutierrez MA ; [facility] Ibuprofen 200 MG Tablet 11/12/2015 Provider: Diagnosis: Last Documented On 6 3:38PM By SHIRA RIVERS ; [facility] Past Medications on file Cephalexin 500 MG Tablet 07/03/2014 - 07/13/2014 Provi jessica: JOSE BLAIR MD Diagnosis: One tablet four times a day Last Documented On 07/03/2014 2:52PM By JOSE BLAIR MD ; [facility] Cyclobenzaprine HCl 10 MG OR TABS 03/09/2014 - 04/08/2014 Provider: ELIZABETH SOTOMAYOR Diagnosis: Headache one po q 8 hours prn Last Documented On 5 9:41AM By ELIZABETH WALLACE ; [facility] Terazol 3 0.8% [facility] CREA 11/10/2013 - 11/13/2013 Provider: ANANDA MONTANO Diagnosis: CANDIDAL VULVOVA GINITIS USE 1 CHRIS IN VAGINA AT HS X 3 APPLY TO PERINEUM BID Last Documented On 4 2:14PM By ANANDA WALLACE ; [facility] Macrobid 100 MG OR CAPS 06/23/2012 - 06/30/2012 Provid er: ELIZABETH WALLACE Diagnosis: DYSURIA Last Documented On 3 3:51PM By ELIZABETH WALLACE ; [facility] Provera 10 MG OR TABS 12/19/2010 - 12/29/2010 Provider : ELIZABETH WALLACE Diagnosis: one po q day x 10 days Last Documented On 1 2:20PM By ELIZABETH WALLACE ; [facility] Terconazole 0.4% [facility] CREA 11/06/2010 - 12/06/2010 Provi ejssica: ELIZABETH WALLACE Diagnosis: Insert vaginally q hs x 7 nocs Last Documented On 1 11:10AM By ELIZABETH WALLACE ; [facility] Triveen-Duo DHA 29-1-200 & 400 MG OR MISC 08/09/2010 - 12/07/2010 Provider: ELIZABETH CARDONA [employer] Diagnosis: Last Documented On 1 11:21AM By ELIZABETH CARDONA BERNA ; [facility] Tri-Sprintec 0.18/0.215/0.25 MG-35 MCG OR TABS 08/01/2009 - 07/27/2010 Provider: ELIZABETH CARDONA [employer] Diagnosis: Last Documented On 0 2:44PM By ELIZABETH CARDONA BERNA ; [facility] Tri-Sprintec 0.18/0.215/0.25 MG-35 MCG OR TABS 0 08/21/2008 - 03/19/2009 Provider: Diagnosis: Last Documented On 03/14/2009 9:50AM By ROD OLIVIER ; [facility] Medications Administered Includes: Administered Medications from this encounter No Administered Medications Recorded Vital Signs Includes: Vital Signs from this encounter Vital Name 03/13/2022 09:28A Blood Pressure Sitting L 110/90 Pulse Rate-Sitting (bpm) 97 Temp-Temporal 96.2 Height (in) 67 Weight (lb) 192.2 Body Mass Index 30.1 Body Surface Area 2 Oxygen Saturation (%) 99 Last Documented: On 03/13/2022 9:31AM ; [facility] Results Includes: Results discussed during this encounter No Results Recorded For Specified Dates History of Present Illness Includes: History of Present Illness from this encounter AMAURY BOWERS is a 41 year old female. - Allergy list reviewed - Medication list reviewed Social History Description Last Updated Alcohol use occ 03/16/2023 Last Documented On 3 9:27AM ; [facility] Sexually active with 1 partners in the l ast year 03/16/2023 Last Documented On 3 9:27AM ; [facility] Former smoker 03/13/2022 Last Documented On 3 9:41AM ; [facility] In monogamous relationship 03/07/2021 Last Documented On 3 9:27AM ; [facility] Not using drugs 03/07/2021 Last Documented On 3 9:27AM ; [facility] Social history unchanged 03/07/2021 Last Documented On 3 9:27AM ; [facility] Current nonsmoker 02/06/2020 Last Documented On 3 9:27AM ; [facility] Non-smoker 02/06/2020 Last Documented On 3 9:27AM ; [facility] Smoking status : Former smoker 0 Last Documented On 3 9:27AM ; [facility] Procedures and Surgical History Includes: Procedures from this encounter Procedures Code Diagnosis Performing Provider Service L ocation Service Date low fat diet Last Documented On 3 9:30AM ; [facility] use of tobacco assessment performed 1000F Last Documented On 3 9:33AM ; [facility] review of medications documented 1160F Last Documented On 3 9:33AM ; [facility] history of cervical Pap smear 03/07/2021 70195 Last Documented On 3 9:28AM ; [facility] fecal occult blood test was negative 84130 Last Documented On 3 9:28AM ; [facility] Surgical History Last Updated History of section 03/07/2021 Last Documented On 3 9:27AM ; [facility] Medical History Includes: Medical History addressed during this encounter Description Last Updated History of screening mammogram was perfo rmed 02/27/2022 03/13/2022 Last Documented On 3 9:41AM ; [facility] LMP: 02/25/2022 03/13/2022 Last Documented On 3 9:41AM ; [facility] Contraception: Natasha 03/13/2022 Last Documented On 3 9:41AM ; [facility] Aborta 1 03/07/2021 Last Documented On 3 9:27AM ; [facility] 3 03/07/2021 Last Documented On 3 9:27AM ; [facility] Para 2 03/07/2021 Last Documented On 3 9:27AM ; [facility] Sexually active 03/07/2021 Last Documented On 3 9:27AM ; [facility] Family History Includes: Family History addressed during this encounter Description Last Updated Family history unchanged 02/02/2019 Last Documented On 3 9:27AM ; [facility] Maternal grandmother's history of hypert ension MGM 02/02/2019 Last Documented On 3 9:27AM ; [facility] Maternal grandmother's histo ry of pure hypercholesterolemia mothers side-grandmother 02/02/2019 Last Documented On 3 9:27AM ; [facility] lung ca on fathers side 12/17/2015 Last Documented On 3 9:27AM ; [facility] Family history of heart disease fathers side 08/14/2011 Last Documented On 3 9:27AM ; [facility] Family history of hypercholesterolemia m others side 08/14/2011 Last Documented On 3 9:27AM ; [facility] Spouse name: Elbert 08/09/2010 Last Documented On 3 9:27AM ; [facility] Family history of hypertension MGM 08/09 Last Documented On 3 9:27AM ; [facility] Family history of thyroid disease 2009 Last Documented On 3 9:27AM ; [facility] Family medical history of Anemia 010 Last Documented On 3 9:27AM ; [facility] Review of Systems Includes: Review of Systems [...] WELL WOMAN - ESTABLISHED PT ELIZABETH CARDONA [facility] 03/13/19 23 9:25AM 9:41AM Screening Malig. Neoplasm Rectum,Normal Female Exam Insurance Includes: Active Insurance Policies Plan Name Member ID Group # Subscriber Relationship Effect kanwal Dates 1 - [facility] [id number] RAJESH BOWERS Clinical Notes Includes: Clinical Notes from this encounter * Progress note Date Encounter Last Documented by 03/13/2022 WELL WOMAN - ESTABLISHED PT Last documented on 03/13/2022; 9:41 AM, ELIZABETH CARDONA SIVAKUMAR-; [facility] Chief Complaint The Chief Complaint is: WWE. History of Present Illness BRANT BOWERS is a 41 year old female. - Allergy list reviewed - Medication list reviewed Current Medication - amLODIPine Besylate 10 MG Oral Tablet 0 days, 0 refills - [facility] Ibuprofen 200 MG Tablet 0 days, 0 refills - hydroCHLOROthiazide 25 MG Oral Tablet 0 days, 0 refills - Norethindrone 0.35 MG Oral Tablet One tablet daily, 28 days, 11 refills Past Medical/Surgical History Reported: LMP: 02/25/2022 and Contraception: Natasha. : 3, para 2, and aborta 1. Sexual: Sexually active. Other: Screening mammogram was performed 02/27/2022 Surgical: - section Social History Social history unchanged. Tobacco use: Former smoker, current nonsmoker, and non-smoker. Smoking status: Former smoker. Alcohol: Alcohol use occ. Drug Use: Not using drugs. Sexual: In monogamous relationship. Sexually active with 1 partners in the last year. Allergies - No Known Allergies Family History Spouse name: Elbert Heart disease fathers side Family history unchanged Family medical history of Anemia Lung ca on fathers side Thyroid disease Systemic hypertension MGM Pure hypercholesterolemia mothers side Maternal grandmother's: Systemic hypertension MGM Pure hypercholesterolemia mothers side-grandmother Review Of Systems Gastrointestinal: No pelvic pain. Genitourinary: No menorrhagia. No dysmenorrhea and no bleeding between periods. No vaginal discharge. Physical Findings - Vitals taken 03/13/2022 09:28 am BP-Sitting L 110/90 mmHg Pulse Rate-Sitting 97 bpm Temp-Temporal 96.2 F Height 67 in Weight 192 lbs 3.2 oz Body Mass Index 30.1 kg/m2 Body Surface Area 2 m2 Oxygen Saturation 99 % Standard Measurements: - Patient was observed to be obese. General Appearance: - [...] Analysis: Fecal occult blood test was negative. Assessment - NORMAL FEMALE EXAM [Z01.419 - Encounter for gynecological examination (general) (routine) without abnormal findings] - Screening Malig. Neoplasm Rectum [Z12.12 - Encounter for screening for malignant neoplasm of rectum] Previous Tests Pathology: Cytology: Cervical Pap smear 03/07/2021. Therapy [...] EndCited StartCited - Other Follow-up 1 year/prn Norethindrone 0.35 MG tablet One tablet daily, 28 days, 11 refills EndCited - Follow-up visit 1 year or as needed - Clinical summary provided to patient Per new ASCCP guidelines, pap was deferred today. This was d/w pt. and pt. is agreeable to this plan. Practice Management Preventive medicine established patient checkup adult 40-64 years; Use of tobacco assessment performed Review of medications documented. Health Reminders - Assess BMI satisfied 03/13/2022. - Assess Tobacco Use satisfied 03/13/2022. - Mammogram satisfied 03/13/2022.
--- OUTSIDE RECORDS SUMMARY | 2024-03-15 14:26 | XMS_ITS | Clinical Summary ---
Author Organization [facility] Address [address] [place] [address] Phone Care Team Providers Care Loan Officer Name Role Phone SOFY MALONE, SELAM C Unavailable [phone] LESLIE SMITH MD Primary Care Provider [phone] Reason for Visit and Chief Complaint The Chief Complaint is: WWE- no issues or concerns- same partner Problems Includes: Problems addressed during this encounter and other active Problems Current Visit Onset Date Resolved Date Provider Mckenzie barbosa Status Drug Use 07/06/2012 Unknown JOSE BLAIR MD Resolved Last Documented On 02/28/2013 3:37PM ; [facility] Note: was Closed. Plan of Treatment - Follow-up visit 1 year or as needed - Last Documented On 03/16/2023 9:34AM ; [facility] - Clinical summary provided to patient - Last Documented On 03/16/2023 9:34AM ; [facility] Per new ASCCP guidelines, pap was deferred today. This was d/w pt. and pt. is agreeable to this plan. - Last Documented On 03/16/2023 9:34AM ; [facility] Instructions to patient Instructions for patient : B reast Self Exam discussed Last Documented On 9:27AM ; [facility] Lose weight Last Documented On 9:28AM ; [facility] Education and Decision Aids were provided during visit for: Patient Education: Daily ange cium and vitamin D Last Documented On 4 9:27AM ; [facility] Patient Education: weight be aring exercise Last Documented On 4 9:27AM ; [facility] Assessments Includes: Assessments from this encounter Findings - NORMAL FEMALE EXAM [Z01.419 - Encounter for gynecological examination (general) (routine) without abnormal findings] - Last Documented On 03/16/2023 9:34AM ; [facility] - Screening Malig. Neoplasm Rectum [Z12.12 - Encounter for screening for malignant neoplasm of rectum] - Last Documented On 03/16/2023 9:34AM ; [facility] Instructions Includes: Instructions from this encounter Instructions to patient Instructions for patient : B reast Self Exam discussed Last Documented On 4 9:27AM ; [facility] Lose weight Last Documented On 4 9:28AM ; [facility] Education and Decision Aids were provided during visit for: Patient Education: Daily ange cium and vitamin D Last Documented On 4 9:27AM ; [facility] Patient Education: weight be aring exercise Last Documented On 4 9:27AM ; [facility] Medical Equipment - Implanted Devices Includes: Current Devices No Medical Equipment Recorded Medications Includes: Medications discussed during this encounter and other current Medications New / Renewed during this visit ELIZABETH WALLACE on 03/16/2023 Norethindrone 0.35 MG Oral Tablet Provider: ELIZABETH Fay 28 day supply: 28 tablet, 11 refills Diagnosis: One tablet daily Pharmacy: [facility]/pharmacy # [id number], [address] - Last Documented On 4 9:45AM By ELIZABETH WALLACE ; [facility] Current Medications (continue as prescribed) hydroCHLOROthiazide 25 MG Oral Tablet 03/07/2021 Pro vider: Diagnosis: Last Documented On 03/07/2021 8:57AM By Daylin Gutierrez MA ; [facility] amLODIPine Besylate 10 MG Oral Tablet 03/07/2021 Pro vider: Diagnosis: Last Documented On 03/07/2021 8:56AM By Daylin Gutierrez MA ; [facility] Ibuprofen 200 MG Tablet 11/12/2015 Provider: Diagnosis: Last Documented On 6 3:38PM By SHIRA RIVERS ; [facility] Past Medications on file Cephalexin 500 MG Tablet 07/03/2014 - 07/13/2014 Provi jessica: JOSE BLAIR MD Diagnosis: One tablet four times a day Last Documented On 07/03/2014 2:52PM By JOSE BLAIR MD ; [facility] Cyclobenzaprine HCl 10 MG OR TABS 03/09/2014 - 04/08/2014 Provider: ELIZABETH SOTOMAYOR Diagnosis: Headache one po q 8 hours prn Last Documented On 5 9:41AM By ELIZABETH WALLACE ; [facility] Terazol 3 0.8% VA CREA 11/10/2013 - 11/13/2013 Provider: ANANDA STRICKLAND RN SIVAKUMAR BC Diagnosis: CANDIDAL VULVOVA GINITIS USE 1 CHRIS IN VAGINA AT HS X 3 APPLY TO PERINEUM BID Last Documented On 4 2:14PM By ANANDA WALLACE ; [facility] Macrobid 100 MG OR CAPS 06/23/2012 - 06/30/2012 Provid er: ELIZABETH WALLACE Diagnosis: DYSURIA Last Documented On 3 3:51PM By ELIZABETH WALLACE ; [facility] Provera 10 MG OR TABS 12/19/2010 - 12/29/2010 Provider : ELIZABETH WALLACE Diagnosis: one po q day x 10 days Last Documented On 1 2:20PM By ELIZABETH WALLACE ; [facility] Terconazole 0.4% VA CREA 11/06/2010 - 12/06/2010 Provi jessica: ELIZABETH WALLACE Diagnosis: Insert vaginally q hs x 7 nocs Last Documented On 1 11:10AM By ELIZABETH WALLACE ; [facility] Triveen-Duo DHA 29-1-200 & 400 MG OR MISC 08/09/2010 - 12/07/2010 Provider: ELIZABETH SOTOMAYOR Diagnosis: Last Documented On 1 11:21AM By ELIZABETH WALLACE ; [facility] Tri-Sprintec 0.18/0.215/0.25 MG-35 MCG OR TABS 08/01/2009 - 07/27/2010 Provider: ELIZABETH SOTOMAYOR Diagnosis: Last Documented On 0 2:44PM By ELIZABETH WALLACE ; [facility] Tri-Sprintec 0.18/0.215/0.25 MG-35 MCG OR TABS 0 08/21/2008 - 03/19/2009 Provider: Diagnosis: Last Documented On 03/14/2009 9:50AM By ROD OLIVIER ; [facility] Medications Administered Includes: Administered Medications from this encounter No Administered Medications Recorded Vital Signs Includes: Vital Signs from this encounter Vital Name 03/16/2023 09:21A Blood Pressure Sitting (mmHg) 124/80 Temp-Temporal 98 Height (in) 67 Weight (lb) 187.2 Body Mass Index 29.3 Body Surface Area 2 Last Documented: On 03/16/2023 9:23AM ; [facility] Results Includes: Results discussed during this encounter LIQUID BASED PAP W HPV [facility] Laboratory Ordered by ELIZABETH Webb-EZRA on 03/07/2021 [address] [address], [place], [address] Collected: 03/07/2021 Report ed: 03/10/2021 10:50 tel:[phone] Last Documented On 2 6:10AM ; [facility] Reviewed by ELIZABETH SOTOMAYOR on 03/11/2021; All test results are final unless otherwise noted. HPV mRNA E6/E7 Not Detected (Not Detected) N (Normal) Last Documented On 2 12:42PM ; [facility] Note: Methodology: Electronics Technician Apprentice-Mediate d AmplificationThis assay detects E6/E7 viral messenger RNA (mRNA) from 14high-risk HPV types (16,18,31,33,35,39,45,51,52,56,58,59,66,68).The analytical performance characteristics of thisassay have been determined by [employer].The modifications have not been cleared or approvedby the FDA. This assay has been validated pursuantto the CLIA regulations and is used forclinical purposes.For additional information, please refer tohttp://education.[employer]/faq/PVV542j3(This link if provided for information/educational purposes only.)THIS TEST WAS PERFORMED AT:[facility] [id number] [place] [place] [address]EHMAYRO BECKER,DO,MPHEXPLANATORY NOTE:The Pap is a screening test for cervical cancer. It isnot a diagnostic test and is subject to false negativeand false positive results. It is most reliable when asatisfactory sample, regularly obtained, is submittedwith relevant clinical findings and history, and whenthe Pap result is evaluated along with historic andcurrent clinical information.THIS TEST WAS PERFORMED AT:[place] [place] [address] [place] [id number] VO,MDResponsible Observer: (whitney) LIQUID BASED PAP W HPV See Note None Last Documented On 2 12:42PM ; [facility] Note: Routine [id number] N NOT PROVIDEDCervix, EndocervixSatisfactory for evaluation.Endocervical/transformation zone componentpresent.Negative for intraepithelial lesion or malignancy.This Pap test has been evaluated with computerassisted technology.[place], CT(ASCP)CT screening location: [place] [address] Desai [id number] Observer: (PA) PAP SMEAR ABNORMAL? NO None Last Documented On 2 12:42PM ; [facility] Note: Responsible Observer: (PA) History of Present Illness Includes: History of Present Illness from this encounter AMAURY BOWERS is a 42 year old female. - Allergy list reviewed - Medication list reviewed - Primary Care Provider: Janey Lainez Social History Description Last Updated Not using alcohol 03/16/2023 Last Documented On 4 9:34AM ; [facility] Sexually active with 1 partners in the l ast year 03/16/2023 Last Documented On 4 9:34AM ; [facility] Former smoker 03/13/2022 Last Documented On 4 9:22AM ; [facility] In monogamous relationship 03/07/2021 Last Documented On 4 9:22AM ; [facility] Not using drugs 03/07/2021 Last Documented On 4 9:22AM ; [facility] Smoking Status Unknown Procedures and Surgical History Includes: Procedures from this encounter Procedures Code Diagnosis Performing Provider Service Location Service Date FIT TEST-SCREENING FOR FECAL OCCULT BLOOD (CLIA WAIVED) 58[address] Encounter for screening for malignant neoplasm of colon ELIZABETH [facility] 03/16/2023 Last Documented On 4 12:08PM ; [facility] low fat diet Last Documented On 4 9:28AM ; [facility] use of tobacco assessment performed 1000F Last Documented On 4 9:25AM ; [facility] cervical Pap smear 88305 Last Documented On 4 9:27AM ; [facility] history of cervical Pap smear 03/07/2021 [id number] Last Documented On 4 9:25AM ; [facility] fecal occult blood test was negative 19069 Last Documented On 4 9:27AM ; [facility] Surgical History Last Updated History of section 03/07/2021 Last Documented On 4 9:22AM ; [facility] Medical History Includes: Medical History addressed during this encounter Description Last Updated History of screening mammogram was perfo rmed 03/13/2023 Had in [place] 03/16/2023 Last Documented On 4 9:34AM ; [facility] LMP: 02/24/2023 03/16/2023 Last Documented On 4 9:34AM ; [facility] Contraception: Natasha 03/13/2022 Last Documented On 4 9:22AM ; [facility] Aborta 1 03/07/2021 Last Documented On 4 9:22AM ; [facility] 3 03/07/2021 Last Documented On 4 9:22AM ; [facility] Para 2 03/07/2021 Last Documented On 4 9:22AM ; [facility] Sexually active 03/07/2021 Last Documented On 4 9:22AM ; [facility] Family History Includes: Family History addressed during this encounter Description Last Updated Maternal grandmother's history of hypert ension MGM 02/02/2019 Last Documented On 4 9:22AM ; [facility] Maternal grandmother's histo ry of pure hypercholesterolemia mothers side-grandmother 02/02/2019 Last Documented On 4 9:22AM ; [facility] lung ca on fathers side 12/17/2015 Last Documented On 4 9:22AM ; [facility] Family history of heart disease fathers side 08/14/2011 Last Documented On 4 9:22AM ; [facility] Family history of hypercholesterolemia m others side 08/14/2011 Last Documented On 4 9:22AM ; [facility] Family history of thyroid disease 2009 Last Documented On 4 9:22AM ; [facility] Family medical history of Anemia 010 Last Documented On 4 9:22AM ; [facility] Review of Systems Includes: Review of [...] Diagnosis [facility] PT ELIZABETH WALLACE [facility] 03/16/19 24 9:30AM 9:34AM Screening Malig. Neoplasm Rectum,Normal Female Exam Insurance Includes: Active Insurance Policies Plan Name Member ID Group # Subscriber Relationship Effect kanwal Dates 1 - [facility] [id number] RAJESH BOWERS Clinical Notes Includes: Clinical Notes from this encounter * Progress note Date Encounter Last Documented by 03/16/2023 [facility] PT Last documented on 03/16/2023; 9:34 AM, ELIZABETH WALLACE; [facility] Chief Complaint The Chief Complaint is: WWE- [...] Screening mammogram was performed 03/13/2023 Had in [place] Surgical: - section Social History Tobacco use: [...] please get most recent mammogram report from [facility]. Thank you! Norethindrone 0.35 MG tablet One [...]
== END 2024-03-15 13:46 | disposition home or self-care (01) ==
LOC: CHSIMG 13:49
PROVIDERS: PCP Nurse Practitioner Family; Visit Provider Nurse Practitioner Women's Health
DX: Z12.31 Encounter for screening mammogram for malignant neoplasm of breast (principal)
CPT/HCPCS: 77063; 77067

== ENCOUNTER 2024-10-11 09:14 | Outpatient (CLI) | payer BC, SELFPAY ==
--- NOTE | ~2024-10-11 | XR_ITS ---
XR knee LT min 4V 10/11/2024 09:37 INDICATION: Left knee pain PROCEDURE: 4 views left knee COMPARISON: No prior studies for comparison. FINDINGS: Fracture, dislocation or subluxation is not identified. No significant joint effusion. The soft tissues appear within normal limits. No foreign bodies are identified. IMPRESSION: 1: NO ACUTE BONE OR JOINT ABNORMALITY IDENTIFIED. Reviewed, dictated and finalized at location O.
== END 2024-10-11 09:15 | disposition home or self-care (01) ==
LOC: CHSIMG 09:16
PROVIDERS: PCP Nurse Practitioner Family; Visit Provider Orthopaedic Surgery
DX: M25.562 Pain in left knee (principal)
CPT/HCPCS: 73564

== ENCOUNTER 2024-10-27 15:01 | Outpatient (CLI) | payer BC, SELFPAY ==
--- NOTE | ~2024-10-27 | MR_ITS ---
EXAMINATION: MR knee LT wo con DATE: 10/27/2024 15:37 INDICATION: Unspecified injury of left lower leg, initial encounter. Left knee pain. TECHNIQUE: Magnetic resonance imaging (MRI) of the left knee was performed without intravenous contrast. Sequences included axial PD-weighted FS FSE, coronal PD-weighted FSE and PD-weighted FS FSE, sagittal PD-weighted FSE, and sagittal T2-weighted FS FSE. COMPARISON: Left knee radiographs 10/11/2024 FINDINGS: Medial compartment: Medial meniscus is normal. Medial compartment cartilage is normal. Lateral compartment: Lateral meniscus is normal. There is cartilage surface irregularity of femoral condyle. Tibial cartilage is normal. Patellofemoral compartment: There is cartilage surface irregularity of patella and trochlea. Ligaments and tendons: Anterior cruciate ligament demonstrates thickening and increased signal intensity. Posterior cruciate ligament is normal. Medial collateral ligament is normal. There are changes of prior sprain of lateral collateral ligament characterized by increased signal intensity proximally. There is mild patellar tendinopathy. Fluid: There is a small knee joint effusion. There is mild prepatellar and superficial infrapatellar bursitis. There is a small Rodriguez's cyst. Osseous/other: Red marrow expansion is noted. IMPRESSION: 1. Mild chondrosis of lateral and patellofemoral compartments. 2. Thickening and increased signal involving anterior cruciate ligament, which may be a partial tear or mucoid degeneration. 3. Small knee joint effusion. 4. Small Rodriguez's cyst. Reviewed, dictated and finalized at location E.
== END 2024-10-27 15:02 | disposition home or self-care (01) ==
PROVIDERS: PCP Nurse Practitioner Family; Visit Provider Orthopaedic Surgery
DX: S89.92XA Unspecified injury of left lower leg, initial encounter (principal); M25.462 Effusion, left knee; M71.22 Synovial cyst of popliteal space [Baker], left knee; M92.42 Juvenile osteochondrosis of patella, left knee; R93.6 Abnormal findings on diagnostic imaging of limbs
CPT/HCPCS: 73721